=== PATIENT | female | born 1950 | race African-American/Black ===

== ENCOUNTER 2017-05-18 23:38 | Inpatient (IN) | payer MEDICARE, OTHER ==
[2017-05-19 00:54] LABS: #Lymphocytes 1.1 thou/uL (1.20-3.40); #Neutrophils 12.7 thou/uL (1.40-6.50); %Basophils 0.1 % (0.0-1.0); %Eosinophils 0.1 % (0.0-10.0); %Lymphocytes 7.1 % (21.0-51.0); %Monocytes 12.5 % (0.0-10.0); Hematocrit 24.1 % (36.0-47.0); Mean Platelet Volume 8.7 fL (7.4-10.4); Red Blood Cell (RBC) Count 2.38 mill/uL (4.20-5.40); White Blood Cell (WBC) Count 15.9 thou/uL (4.8-10.8)
[2017-05-19] MEDS ORDERED: Ondansetron ODT 4 MG TAB SL PRN (01:35)
[2017-05-19] MEDS ORDERED: Acetaminophen 325 MG TAB PO PRN (01:35)
[2017-05-19] MEDS ORDERED: Ondansetron HCl/PF 4 MG/2 ML Vial IVP PRN ×2 (01:35→06:59)
[2017-05-19] MEDS ORDERED: Sodium Chloride 0.9% 1,000 ML IV SCH (02:15)
[2017-05-19 02:26] VITALS: BMI 28.2
[2017-05-19 05:08] LABS: #Monocytes 1.3 thou/uL (0.11-0.59); #Neutrophils 13.8 thou/uL (1.40-6.50); %Basophils 0.1 % (0.0-1.0); %Eosinophils 0.1 % (0.0-10.0); %Lymphocytes 6.4 % (21.0-51.0); %Monocytes 8.2 % (0.0-10.0); Hematocrit 25.8 % (36.0-47.0); Mean Platelet Volume 8.9 fL (7.4-10.4); Red Blood Cell (RBC) Count 2.54 mill/uL (4.20-5.40); White Blood Cell (WBC) Count 16.2 thou/uL (4.8-10.8)
[2017-05-19 05:28] LABS: ALT (SGPT) 13 U/L (8-55); AST (SGOT) 51 U/L (5-34); Alkaline Phosphatase 206 U/L (40-150); Anion Gap 12 mmol/L (10-20); BUN (Urea Nitrogen) 32 mg/dL (9.8-20.1); Bilirubin, Total 2.2 mg/dL (0.2-1.2); Calc. Creatinine Clearance 35 mL/min (70-130); Calcium 8.4 mg/dL (7.8-10.44); Carbon Dioxide 23 mmol/L (23-31); Chloride 107 mmol/L (98-107); Estimated GFR-MDRD 34; Protein, Total 6.5 g/dL (6.0-8.3)
[2017-05-19] MEDS ORDERED: Potassium Chloride 20 MEQ TAB PO SCH (06:15)
[2017-05-19] MEDS ORDERED: Potassium Chloride 20 MEQ in Sodium Chloride 0.9% 250 ML 250 ML IVPB SCH (06:30)
[2017-05-19] MEDS ORDERED: Eucerin (Mineral Oil/Petrolatum,White) 30 gm Jar TOP PRN (06:59)
[2017-05-19] MEDS ORDERED: Ondansetron ODT 4 MG TAB PO PRN (06:59)
[2017-05-19] MEDS ORDERED: Zolpidem Tartrate 5 MG TAB PO PRN (06:59)
[2017-05-19] MEDS ORDERED: Milk Of Magnesia 30 ML UDCUP PO PRN (06:59)
[2017-05-19] MEDS ORDERED: Artificial Tears 18 DROP/0.9 ML EA EYE PRN (06:59)
[2017-05-19] MEDS ORDERED: Chloraseptic Spray 180 ml Bottle PO PRN (06:59)
[2017-05-19] MEDS ORDERED: Sodium Chloride 0.65% Nasal 44 ML BOT EA NARE PRN (06:59)
[2017-05-19] MEDS ORDERED: Loratadine 10 MG TAB PO PRN (06:59)
[2017-05-19] MEDS ORDERED: hydrALAZINE 20 MG/ML VIAL SLOW IVP PRN (06:59)
[2017-05-19] MEDS ORDERED: VANCOMYCIN IVPB PRN (06:59)
[2017-05-19] MEDS ORDERED: Mag-Al 1200 mg/1200 mg/30 ML UDCUP PO PRN (06:59)
[2017-05-19] MEDS ORDERED: Loperamide HCl 2 MG CAP PO PRN (06:59)
[2017-05-19] MEDS ORDERED: Senokot 8.6 MG TAB PO PRN (06:59)
[2017-05-19 07:23] LABS: Magnesium 1.7 mg/dL (1.6-2.6); Phosphorus 2.2 mg/dL (2.3-4.7)
[2017-05-19] MEDS: Cefepime 1 GM, Admixture Fee 1 EACH in Sterile Water 10 ML SLOW IVP SCH ×2 (08:26→21:50)
[2017-05-19] MEDS: Famotidine 20 MG TAB PO SCH (08:28)
[2017-05-19] MEDS: Saccharomyces boulardii 250 MG CAP PO SCH (08:28)
[2017-05-19] MEDS: Heparin 5,000 UNITS/ML VIAL SC SCH ×2 (08:31→21:51)
[2017-05-19] MEDS ORDERED: Cefepime 1 GM in Sodium Chloride 0.9% 100 ML IVPB SCH (09:00)
[2017-05-19] MEDS ORDERED: Multivit, Adult Inj 10 ML VIAL IV SCH (09:00)
[2017-05-19] MEDS ORDERED: Potassium Phosphate 12 MMOL in Sodium Chloride 0.9% 250 ML 250 ML IVPB SCH (09:00)
--- NOTE | 2017-05-19 09:56 | HP ---
PRIMARY CARE PHYSICIAN: Timbo Burden M.D. REASON FOR ADMISSION: Sepsis. HISTORY OF PRESENT ILLNESS: A 66-year-old female who has metastatic colon cancer and she is on chemo therapy. She initially went to [facility] for evaluation of cough and weakness. Patient was having cough productive of scanty amount of sputum for the last 2 days. She was feeling subjecti ve feverish, but she did not measure temperature. She was feeling more weak. She was having poor ap petite. At [facility], patient's temperature was 102.7. Patient was not feeling that hig h fever at home. At [facility], patient had routine blood test, which showed leukocytosis with acute kidney failure and hypokalemia. Patient was given vancomycin, Zosyn, potassium chloride, and Tylenol 1 gram as well as IV fluid and subsequently, she was transferred to our emergency room f or further evaluation. Initially, this patient was hypotensive. The patient was getting IV fluid overnight and she currentl y does not have any fever. She denies any pleuritic chest pain. She denies any constipation, diarrh ea, melena, hematochezia. She denies any nausea, vomiting, hematemesis. She denies any urinary trac t infection symptoms. ALLERGIES: No known drug allergies. CURRENT HOME MEDICATIONS: Hydrochlorothiazide 25 mg p.o. daily, Toprol-XL 50 mg p.o. daily, potassiu m chloride 20 mEq p.o. daily. REVIEW OF SYSTEMS: The following complete review of systems was negative, unless otherwise mentioned in the HPI or below: Constitutional: Weight loss or gain, ability to conduct usual activities. Sk in: Rash, itching. Eyes: Double vision, pain. ENT/Mouth: Nose bleeding, neck stiffness, pain, te nderness. Cardiovascular: Palpitations, dyspnea on exertion, orthopnea. Respiratory: Shortness of breath, wheezing, cough, hemoptysis, fever or night sweats. Gastrointestinal: Poor appetite, abdom inal pain, heartburn, nausea, vomiting, constipation, or diarrhea. Genitourinary: Urgency, frequenc y, dysuria, nocturia. Musculoskeletal: Pain, swelling. Neurologic/Psychiatric: Anxiety, depressio n. Allergy/Immunologic: Skin rash, bleeding tendency. Please see my HPI for pertinent positive and negatives. All other review of systems reviewed and neg ative except as mentioned in the HPI. EMERGENCY ROOM COURSE: Patient has received vancomycin, Zosyn and potassium chloride. [facility] the patient has received Tylenol and IV fluid at [facility]. PAST MEDICAL HISTORY: Hypertension, history of dyslipidemia, not on any statin therapy at this point . PAST SURGICAL HISTORY: Colon resection and MediPort placement. PAST PSYCHIATRIC HISTORY: Reviewed and negative. SOCIAL HISTORY: The patient lives at home with family. No history of tobacco, alcohol or illicit dr ug abuse. FAMILY HISTORY: Positive for asthma to her mother. PHYSICAL EXAMINATION: VITAL SIGNS: On arrival to [facility], blood pressure 146/76, pulse 95, respiratory rate 16, temperature 102.7, saturation 97% on room air. Currently, temperature 98.0, pulse 76, respirator y rate 18, saturation 99%, blood pressure 93/54, weight 164 pounds. GENERAL: Patient is currently alert, awake, no obvious acute distress. HEAD: Alopecia noted, but normocephalic, atraumatic. Eyes: Pupils round, reactive to light. Extra ocular muscle intact. ENT: Dry mucous membranes, no oral lesions, no pharyngeal erythema, no exudate. NECK: Supple, no JVD, no thyromegaly, no carotid bruits. LUNGS: Coarse breath sounds, but no obvious rhonchi or rales noted. CARDIAC: S1, S2 regular. No murmur, no gallop, no rub. ABDOMEN: Soft, bowel sounds present, nontender, nondistended. No organomegaly, no mass, no suprapub ic tenderness. BACK: Unremarkable, no CVA tenderness. EXTREMITIES: Upper extremity passive movement of all joints are normal. Lower extremities: No mariana a. SKIN: No skin rash. No erythema or tenderness around the MediPort. HEMATOLOGIC: No lymphadenopathy. SIGNIFICANT LABORATORY DATA: CBC: WBC 17.5, hemoglobin 9.4, MCV 101.0, platelet 254 with bandemia. BMP shows sodium 137, potassium 2.7, chloride 100, carbon dioxide 23, BUN 29, creatinine 1.180, gluc ose 95, calcium 9.4, phosphorus 2.2, magnesium 1.7. LFT: AST 63, ALT 18, alkaline phosphatase 246, albumin 3.0, bilirubin 1.9. Urinalysis, bilirubin present. Chest x-ray based on my review, chronic lung changes, MediPort in place. CT abdomen was recently done which showed enlargement of large mass involving the right lobe of liver, lymphadenopathy. ASSESSMENT AND PLAN: 1. Post-chemotherapy fever with sepsis with acute organ dysfunction. At this point, the patient was febrile at 102.7. Source of infection is not clear, but I am suspecting bronchitis given her fever, leukocytosis, and cough for almost 2 days. Patient is immunocompromised from chemotherapy. Patient will require admission and patient does not have any chills or less likely to be bacteremia, but nee ds to be excluded given MediPort. We will follow up on culture result and will continue with broad-s pectrum antibiotic therapy with cefepime and vancomycin and will change antibiotic therapy accordingl y. We will also add levofloxacin to cover staphylococcus coverage. We will influenza screen and uri ne culture. 2. Sepsis with acute organ dysfunction. The patient has sepsis criteria with leukocytosis, bandemia , high grade fever with acute kidney failure as mentioned in problem #1. We will continue empiric an tibiotic therapy and follow up on culture result. We will also continue with IV fluids. 3. Acute kidney failure. The patient will be given IV fluid with potassium at 125 mL per hour and w ill repeat BMP tomorrow. We will avoid nephrotoxin agent. 4. Hypotension because of low blood pressure, we will hold on antihypertensive medication at this po int. Whenever blood pressure permits, then we will resume her home medication. 5. Hypokalemia. We will replace potassium chloride with IV fluid and will also replace potassium ph osphatase. 6. Hypophosphatemia. We will replace potassium phosphate 12 mmol one time dose. 7. Microcytic anemia. We will continue with multivitamin daily and upon discharge, we will consider adding folic acid, vitamin B12, and multivitamin therapy upon discharge. 8. History of hypertension, but currently low blood pressure and that is why we will hold on antihyp ertensive medication. 9. History of metastatic colon cancer. Patient is following Dr. Reza as an outpatient basis. On cology consulted. Patient will get chemotherapy when oncology recommends. 10. Deep venous thrombosis prophylaxis. Lovenox, heparin 5000 units subcu twice daily. 11. Gastrointestinal prophylaxis. Pepcid 20 mg p.o. daily. CODE STATUS: The patient is FULL CODE. Patient's daughter is surrogate decision maker. Disposition plan based on clinical course. We are expecting patient's stay in the hospital more than 2 midnights. Plan of care discussed with the patient and family member and during this admission, w e will also send stool for infection workup to rule out Clostridium difficile infection.
[2017-05-19] MEDS: MULTIVITAMINS IV SCH ×2 (13:11)
[2017-05-19] MEDS: KCL IV SCH ×2 (13:11)
[2017-05-19] MEDS: NS IV SCH ×2 (13:11)
[2017-05-19] MEDS: NS 0.9% w/ 20 MEQ KCL 1,000 ML/1,000 ML BAG IV SCH ×2 (15:59→16:00)
[2017-05-19] MEDS: Diabetic Tussin 200 MG/10 ML UDCUP PO PRN ×2 (18:38→21:59)
[2017-05-19] MEDS: Acetaminophen 325 MG TAB PO PRN (21:58)
[2017-05-19] MEDS ORDERED: Vancomycin HCl 750 MG in Sodium Chloride 0.9% 250 ML 250 ML IVPB SCH (22:00)
--- NOTE | 2017-05-19 23:37 | PDOC.EVN ---
Event Note - Event Note Event Note: RN called - Patient is tachycardic in 150s while on Vancomycin. Hold Vancomycin for now for possible allergic reaction. EKG showed ?ST HR in 140s. Will transfer to tele. Echo. Cardizem drip. Close monitoring. Troponins.
[2017-05-19] MEDS ORDERED: diphenhydrAMINE 50 MG/ML VIAL IVP SCH (23:45)
[2017-05-19] MEDS ORDERED: Famotidine/PF 20 mg/2ml Vial SLOW IVP SCH (23:45)
[2017-05-20] MEDS ORDERED: Nitroglycerin 0.4 MG TAB (25 Tab Bottle) PO PRN (00:13)
[2017-05-20] MEDS ORDERED: Aspirin 325 MG TAB PO SCH (00:15)
[2017-05-20] MEDS ORDERED: Diltiazem 125 MG in Sodium Chloride 0.9% 100 ML IVPB SCH (00:15)
[2017-05-20] MEDS: HYDROcodone/Acetaminophen 5/325 mg Tablet PO PRN ×2 (00:20→20:03)
[2017-05-20 00:26] LABS: Anion Gap 16 mmol/L (10-20); BUN (Urea Nitrogen) 21 mg/dL (9.8-20.1); Calc. Creatinine Clearance 49 mL/min (70-130); Calcium 8.9 mg/dL (7.8-10.44); Carbon Dioxide 18 mmol/L (23-31); Chloride 104 mmol/L (98-107); Estimated GFR-MDRD 49; Magnesium 1.4 mg/dL (1.6-2.6)
[2017-05-20 00:31] LABS: Troponin I 0.014 ng/mL (< 0.028)
[2017-05-20] MEDS: NS 0.9% w/ 20 MEQ KCL 1,000 ML/1,000 ML BAG IV SCH ×3 (04:30→15:07)
[2017-05-20 05:10] LABS: ALT (SGPT) 16 U/L (8-55); AST (SGOT) 52 U/L (5-34); Alkaline Phosphatase 198 U/L (40-150); Anion Gap 11 mmol/L (10-20); BUN (Urea Nitrogen) 20 mg/dL (9.8-20.1); Bilirubin, Total 1.7 mg/dL (0.2-1.2); Calc. Creatinine Clearance 57 mL/min (70-130); Calcium 8.5 mg/dL (7.8-10.44); Carbon Dioxide 21 mmol/L (23-31); Chloride 107 mmol/L (98-107); Estimated GFR-MDRD 58; Globulin 3.9 g/dL (2.4-3.5); Phosphorus 2.5 mg/dL (2.3-4.7); Protein, Total 6.3 g/dL (6.0-8.3)
[2017-05-20 05:11] LABS: Band 26 % (5-11); Hematocrit 25.7 % (36.0-47.0); Mean Platelet Volume 9.1 fL (7.4-10.4); Neutrophil 58 % (42-75); Red Blood Cell (RBC) Count 2.53 mill/uL (4.20-5.40); White Blood Cell (WBC) Count 16.6 thou/uL (4.8-10.8)
[2017-05-20] MEDS ORDERED: Potassium Chloride 20 MEQ TAB PO SCH (05:30)
[2017-05-20] MEDS ORDERED: Magnesium 2 GM/NS 0.9% 50 ML 2 GM in Premix Bag 1 BAG IVPB SCH (06:00)
[2017-05-20] MEDS: Cefepime 1 GM, Admixture Fee 1 EACH in Sterile Water 10 ML SLOW IVP SCH ×2 (08:51→20:05)
[2017-05-20] MEDS: Famotidine 20 MG TAB PO SCH (08:52)
[2017-05-20] MEDS: Potassium Chloride 20 MEQ TAB PO SCH (08:52)
[2017-05-20] MEDS: Heparin 5,000 UNITS/ML VIAL SC SCH ×2 (08:52→20:04)
[2017-05-20] MEDS: Saccharomyces boulardii 250 MG CAP PO SCH (08:52)
[2017-05-20] MEDS ORDERED: Metoprolol Tartrate 25 MG TAB PO SCH (09:00)
[2017-05-20 09:24] LABS: Troponin I 0.199 ng/mL (< 0.028)
[2017-05-20] MEDS: KCL IV SCH ×2 (12:12)
[2017-05-20] MEDS: MULTIVITAMINS IV SCH ×2 (12:12)
[2017-05-20] MEDS: NS IV SCH ×2 (12:12)
--- NOTE | 2017-05-20 12:55 | PDOC.PN ---
- Subjective Encounter Start Date: 05/20/17 Encounter Start Time: 12:53 Subjective: feels a little better.cough .no SOB.no chills -: Pt had reaction to vancomycin w chest pain & tachycardia,now better - Objective Resuscitation Status: Resuscitation Status FULL:Full Resuscitation MAR Reviewed: Yes Vital Signs & Weight: Vital Signs (12 hours) Temp Pulse Resp BP Pulse Ox 05/20/17 12:01 98.1 F 77 18 120/69 99 05/20/17 08:00 97.6 F 78 16 05/20/17 07:44 97.6 F 78 16 102/62 95 05/20/17 04:00 98.2 F 87 20 101/57 L 98 05/20/17 02:22 99.3 F 134 H 20 98 05/20/17 00:58 99.8 F H 127 H 26 H 121/65 94 L Weight Weight 167 lb 11.2 oz I&O: 05/19/17 05/20/17 05/21/17 06:59 06:59 06:59 Intake Total 855 1235 Balance 855 1235 Result Diagrams: 05/20/17 04:15 05/20/17 04:15 Additional Labs: Microbiology 05/18/17 20:18 Nasopharyngeal swab Influenza Types A,B Direct EIA - Final 05/18/17 20:02 Venous blood - Right Arm Blood Culture - Preliminary Klebsiella pneumoniae 1/2 Laboratory Tests 05/15/17 05/18/17 05/19/17 09:04 20:02 04:46 Creatinine 1.80 H Total Bilirubin 2.2 H AST 63 H 51 H ALT Alkaline Phosphatase 189 H 246 H 206 H Troponin I 05/19/17 05/19/17 05/20/17 23:55 23:55 04:15 Creatinine 1.30 H 1.13 H Total Bilirubin 1.7 H AST 52 H ALT 16 Alkaline Phosphatase 198 H Troponin I 0.014 05/20/17 08:56 Creatinine Total Bilirubin AST ALT Alkaline Phosphatase Troponin I 0.199 H Radiology Reviewed by me: Yes (ECHO- diastolic dysFx) Phys Exam - Physical Examination Constitutional: NAD HEENT: PERRLA, moist MMs, sclera anicteric, oral pharynx no lesions Neck: no nodes, no JVD, supple, full ROM Respiratory: no wheezing, no rales, no rhonchi, clear to auscultation bilateral Cardiovascular: RRR, no significant murmur, no rub, gallop Gastrointestinal: soft, non-tender, no distention, positive bowel sounds Musculoskeletal: no edema, pulses present Neurological: non-focal, normal sensation, moves all 4 limbs Psychiatric: normal affect, A&O x 3 Skin: no rash Dx/Plan (1) Sepsis Code(s): A41.9 - SEPSIS, UNSPECIFIED ORGANISM Status: Acute (2) Hypokalemia Code(s): E87.6 - HYPOKALEMIA Status: Acute (3) KIM (acute kidney injury) Code(s): N17.9 - ACUTE KIDNEY FAILURE, UNSPECIFIED Status: Acute (4) Liver metastases Code(s): C78.7 - SECONDARY MALIG NEOPLASM OF LIVER AND INTRAHEPATIC BILE DUCT Status: Chronic (5) Colon cancer Code(s): C18.9 - MALIGNANT NEOPLASM OF COLON, UNSPECIFIED Status: Chronic (6) Elevated troponin Code(s): R74.8 - ABNORMAL LEVELS OF OTHER SERUM ENZYMES Status: Acute Comment: marciano demand ischemia due to Sepsis - Plan DVT proph w/SCDs cont empiric ABx.no clear source./ Blood Cx +ve for klebsiella -: will consult ID as pt is immunocompromised w ongoing Chemo -: Liver Enzymes high d/t Liver mets. monitor. -: Mediport in place. -: Cont ChemoRx as an outpatient. * .AM labs. * hemodynamically stable. Review of Systems - Review of Systems Constitutional: Weakness, Malaise ENT: negative: Ear Pain, Ear Discharge, Nose Pain, Nose Discharge, Nose Congestion, Mouth Pain, Mouth Swelling, Throat Pain, Throat Swelling, Other Respiratory: Cough. negative: Dry, Shortness of Breath, Hemoptysis, SOB with Excertion, Pleuritic Pain, Sputum, Wheezing Cardiovascular: negative: Chest Pain, Palpitations, Orthopnea, Paroxysmal Noc. Dyspnea, Edema, Light Headedness, Other Gastrointestinal: negative: Nausea, Vomiting, Abdominal Pain, Diarrhea, Constipation, Melena, Hematochezia, Other Genitourinary: negative: Dysuria, Frequency, Incontinence, Hematuria, Retention , Other Musculoskeletal: negative: Neck Pain, Shoulder Pain, Arm Pain, Back Pain, Hand Pain, Leg Pain, Foot Pain, Other Neurological: negative: Weakness, Numbness, Incoordination, Change in Speech, Confusion, Seizures, Other - Medications/Allergies Allergies/Adverse Reactions: Allergies Allergy/AdvReac Type Severity Reaction Status Date / Time bevacizumab [From Avastin] Allergy Verified 05/20/17 02:39 vancomycin Allergy Verified 05/20/17 02:39 Medications: Current Medications Acetaminophen (Tylenol) 650 mg PO Q4H PRN PRN Reason: Headache/Fever or Pain Last Admin: 05/19/17 21:58 Dose: 650 mg Hydrocodone Bitart/Acetaminophen ([place] 5/325) 1 tab PO Q4H PRN PRN Reason: Moderate Pain (4-6) Last Admin: 05/20/17 00:20 Dose: 1 tab Al Hydroxide/Mg Hydroxide (Maalox) 30 ml PO Q6H PRN PRN Reason: Heartburn or Indigestion Albuterol/Ipratropium (Duoneb) 3 ml NEB Q6H PRN PRN Reason: SOB &/or Wheezing Artificial Tears (Tears Naturale) 0 drop EA EYE PRN PRN PRN Reason: Dry Eyes Famotidine (Pepcid) 20 mg PO DAILY [facility] Last Admin: 05/20/17 08:52 Dose: 20 mg Guaifenesin (Robitussin Sf) 200 mg PO Q4H PRN PRN Reason: Cough Last Admin: 05/19/17 21:59 Dose: 200 mg Heparin Sodium (Porcine) (Heparin) 5,000 units SC BID [facility] Last Admin: 05/20/17 08:52 Dose: 5,000 units Hydralazine HCl (Apresoline) 10 mg SLOW IVP Q4H PRN PRN Reason: Systolic BP > 180 Potassium Chloride/Sodium Chloride (Ns 0.9% W/ 20 Meq Kcl) 1,000 ml in 1,000 mls @ 125 mls/hr IV .Q8H [facility] Last Admin: 05/20/17 12:25 Dose: Not Given Cefepime HCl 1 gm/Miscellaneous Medication 1 each/ Sterile Water 10 mls @ 120 mls/hr SLOW IVP 0800,1999 [facility] Last Admin: 05/20/17 08:51 Dose: 10 mls Loperamide HCl (Imodium) 2 mg PO PRN PRN PRN Reason: Diarrhea/Loose Stools Loratadine (Claritin) 10 mg PO DAILYPRN PRN PRN Reason: Sinus Symptoms Magnesium Hydroxide (Milk Of Magnesium) 30 ml PO DAILYPRN PRN PRN Reason: Constipation Metoprolol Succinate (Toprol Xl) 50 mg PO DAILY [facility] Last Admin: 05/20/17 08:52 Dose: 50 mg Mineral Oil/White Petrolatum (Eucerin Cream) 0 gm TOP BIDPRN PRN PRN Reason: Dry Skin Nitroglycerin (Nitrostat) 0.4 mg PO Q5MIN PRN PRN Reason: Chest Pain Ondansetron HCl (Zofran Odt) 4 mg PO Q6H PRN PRN Reason: Nausea/Vomiting Ondansetron HCl (Zofran) 4 mg IVP Q6H PRN PRN Reason: Nausea/Vomiting Last Admin: 05/19/17 23:59 Dose: 4 mg Phenol (Chloraseptic Heber 180 Ml Bot) 0 ml PO PRN PRN PRN Reason: Sore Throat Potassium Chloride (K-Dur) 20 meq PO QAM-WM [facility] Last Admin: 05/20/17 08:52 Dose: 20 meq Saccharomyces Boulardii (Florastor) 250 mg PO DAILY [facility] Last Admin: 05/20/17 08:52 Dose: 250 mg Senna (Senokot) 2 tab PO HSPRN PRN PRN Reason: Constipation Sodium Chloride (Butler Nasal Heber 0.65%) 0 ml EA NARE QIDPRN PRN PRN Reason: Nasal Congestion Sodium Chloride (Flush - Normal Saline) 10 ml IVF PRN PRN PRN Reason: Saline Flush Zolpidem Tartrate (Ambien) 5 mg PO HSPRN PRN PRN Reason: Insomnia
--- NOTE | 2017-05-20 13:30 | CON ---
DATE OF CONSULTATION: 05/20/2017 REASON FOR CONSULTATION: Bacteremia. HISTORY OF PRESENT ILLNESS: A 66-year-old with history of hypertension and adenocarcinoma of colon d iagnosed in 2010 and in remission until 08/2015 when she was identified with metastatic liver maligna ncy. She also had subsequently PET scan suggestive of lung with mets as well. Since then, patient h as been managed palliative chemotherapy and stenting of the biliary tract for palliative management o f biliary obstruction. The patient has had a brief biliary stent since 08/2015 and has had a permane nt stent placed in August of this year by Dr. Aviles and was admitted at this time because of new onset of cough and weakness which she developed on the day of admission associated with fever. No sputum p roduction. No headaches or maybe some headaches. No visual symptoms, sore throat, odynophagia, or d ysphagia. No vomiting, hematemesis, melena, or hematochezia, no diarrhea, no abdominal pain. No jcarlos rological symptoms or joint symptoms. No back pain. PAST MEDICAL HISTORY: Hypertension, dyslipidemia, stage 2 colon cancer diagnosed in 2010, in [facility] on until 2015, which was diagnosed with metastatic liver involvement as well as lung involvement and biliary tract obstruction, multiple biliary stents placed and palliative chemotherapy, [facility], prior segmental colon resection. SOCIAL HISTORY: Never a smoker. Lives in [place] with family. FAMILY HISTORY: Asthma. ALLERGY HISTORY: BEVACIZUMAB and VANCOMYCIN. CURRENT MEDICATIONS: Tylenol, [place], DuoNeb, cefepime, Pepcid, Robitussin, Apresoline, Toprol, Zofra n, Senokot, Florastor. PHYSICAL EXAMINATION: VITAL SIGNS: T-max 100.5, currently 98.1, blood pressure 120/69, pulse 77, respirations 16-18, O2 sa t 99%. SKIN: Shows a port in the right subclavian position, tunneled into the IJ with no inflammatory partida es. The port is accessed at this time. No Rolle catheter. No lymphadenopathy. Some alopecia. HEENT: Ocular movements are conjugate. Sclerae are white. Pupils are equal. Oral cavity normal. Numerous teeth in place. NECK: Supple, no jugular venous distention. LUNGS: With symmetric clear breath sounds. HEART: S1 and S2, regular rate. No S3 or S4. ABDOMEN: Shows hepatomegaly. Some distention in the right upper quadrant, no tenderness. No ascite s, no other organomegaly. No bladder distention. EXTREMITIES: No joint inflammatory activity. Pulses are 1+ in dorsalis pedis. No edema. NEUROLOGIC: Plantar responses are flexor. No clonus. Cognitive function appears to be intact. Str ength in upper and lower extremities is preserved and symmetric. LABORATORY DATA AND IMAGING: White cell count 15.9 and 16.6, hemoglobin 8.4, MCV 102, platelets 227, 80% neutrophils down to 50% neutrophils, bands at 26%. Chemistry: Sodium 136, potassium 2.8, bilir ubin 1.7, AST 52, alkaline phosphatase 206, jerrod of alkaline phosphatase was 97 on 04/17/2017, AST w as down to 33 recently in 05/15/2017, total bilirubin had normalized to 0.8 at the end of March. R eports included abdomen and pelvis CT from 04/18/2017 with slight enlargement of large mass involving right lobe of liver, cidny hepatis and portocaval adenopathy appears stable. Creatinine 1.13 down f rom admission. Baseline creatinine 1.09 in November this year. Chest x-ray with chronic lung changes. ASSESSMENT: 1. Hypertension. 2. Metastatic stage IV colon cancer with metastasis to liver, biliary tract obstruction, and evidenc e of pulmonary metastasis. 3. Fever, cough, and Klebsiella pneumoniae bacteremia, 1 out of 2 sets. DISCUSSION: Differential diagnosis includes cholangitis associated with stent and patency and commun ication between biliary tract and intestinal lumen with colonization of biliary tract versus dysfunct ion of the stent or obstruction with cholangitis. An alternate process, for example respiratory trac t infection, urinary tract, bone and joint and gastrointestinal inflammatory process appeared to be l ess likely. Liver abscess is a concern. Continue cefepime. Wait for identification and susceptibil ity of the organism. Hopefully, we can transition to oral quinolone. Ideally, one would like to rep eat CT abdomen with contrast to evaluate for the above possibilities, but will have to wait for creat inine to improve. In the meantime, could do an ultrasound of the abdomen.
[2017-05-20 16:31] LABS: Magnesium 2.1 mg/dL (1.6-2.6)
[2017-05-20] MEDS: Diabetic Tussin 200 MG/10 ML UDCUP PO PRN (21:06)
[2017-05-21] MEDS: NS 0.9% w/ 20 MEQ KCL 1,000 ML/1,000 ML BAG IV SCH ×2 (01:10→09:33)
[2017-05-21 05:12] LABS: Troponin I 0.195 ng/mL (< 0.028)
--- NOTE | 2017-05-21 08:25 | ULT ---
RIGHT UPPER QUADRANT ULTRASOUND: DATE: 05/21/17. HISTORY: Hepatic metastatic disease, evaluate biliary tree. TECHNIQUE: Multiplanar, biggs scale, sonographic imaging of the right upper quadrant provided. FINDINGS: There is a heterogeneously hypoechoic 3.6 x .4 cm mass in the region of the pancreatic head, which co uld represent a pancreatic mass or enlarged node in the cindy hepatis. No evidence for intrahepatic biliary dilatation is seen. There is a large heterogeneously hypoechoic lesion replacing the right lower lobe of the liver, consi stent with the provided history of metastatic disease. This lesion measures at least 10 x 13.6 cm. The common bile duct measures in the 5-6 range, within normal limits. The right kidney measures 11.7 cm in craniocaudal dimension and demonstrates no evidence for stone, h ydronephrosis, or mass. What appears to represent the gallbladder is markedly abnormal, with central fluid echogenicity, prob able internal gas, and marked wall thickening, measuring up to 1 cm. There is evidence of pneumobilia within the left lobe of the liver. IMPRESSION: 1. Probable cindy hepatis adenopathy. Lesion within the liver nearly completely replacing the right lobe of the liver is consistent with metastatic disease. 2. The gallbladder wall is markedly thickened. This is of uncertain etiology/significance. The son ographer reports a negative Padilla's sign. There is probable gas within the gallbladder, which was s een on recent CT performed 04/18/17. If there is clinical concern for acute cholecystitis, CT examina tion is suggested. POS: SARAH
[2017-05-21] MEDS ORDERED: NS 0.9% w/ 20 MEQ KCL 1,000 ML/1,000 ML BAG IV SCH (08:27)
[2017-05-21 08:39] LABS: #Lymphocytes 1.1 thou/uL (1.20-3.40); #Monocytes 1.5 thou/uL (0.11-0.59); #Neutrophils 11.6 thou/uL (1.40-6.50); %Basophils 0.1 % (0.0-1.0); %Eosinophils 0.2 % (0.0-10.0); %Lymphocytes 7.4 % (21.0-51.0); %Monocytes 10.7 % (0.0-10.0); Hematocrit 25.9 % (36.0-47.0); Mean Platelet Volume 9.4 fL (7.4-10.4); Red Blood Cell (RBC) Count 2.51 mill/uL (4.20-5.40); White Blood Cell (WBC) Count 14.2 thou/uL (4.8-10.8)
[2017-05-21 08:50] LABS: Anion Gap 13 mmol/L (10-20); BUN (Urea Nitrogen) 14 mg/dL (9.8-20.1); Calc. Creatinine Clearance 72 mL/min (70-130); Calcium 8.6 mg/dL (7.8-10.44); Carbon Dioxide 19 mmol/L (23-31); Chloride 109 mmol/L (98-107); Estimated GFR-MDRD 77
[2017-05-21] MEDS: Acetaminophen 325 MG TAB PO PRN (09:06)
[2017-05-21] MEDS: Potassium Chloride 20 MEQ TAB PO SCH (09:06)
[2017-05-21] MEDS: Saccharomyces boulardii 250 MG CAP PO SCH (09:06)
[2017-05-21] MEDS: Famotidine 20 MG TAB PO SCH (09:06)
[2017-05-21] MEDS: Heparin 5,000 UNITS/ML VIAL SC SCH (09:07)
[2017-05-21] MEDS ORDERED: ADMIXTURE FEE IV SCH (09:15)
[2017-05-21] MEDS ORDERED: POTASSIUM CHLORIDE IV SCH (09:15)
[2017-05-21] MEDS ORDERED: SODIUM CHLORIDE IV SCH (09:15)
[2017-05-21] MEDS: Cefepime 1 GM, Admixture Fee 1 EACH in Sterile Water 10 ML SLOW IVP SCH (10:36)
[2017-05-21 12:26] VITALS: BP 132/77; TEMP 98.3
--- NOTE | 2017-05-21 17:56 | DIS ---
DATE OF ADMISSION: 05/19/2017 DATE OF DISCHARGE: 05/21/2017 CONDITION AT THE TIME OF DISCHARGE: Stable and improved. DISCHARGE DIAGNOSES: 1. Sepsis secondary to Klebsiella bacteremia. 2. Questionable cholangitis and differential diagnosis of sepsis. 3. Hypertension. 4. Metastatic stage IV colon cancer with metastasis to liver, biliary tract obstruction, status post stent placement in the past, and pulmonary metastasis. 5. Allergic reaction to VANCOMYCIN. 6. Hypokalemia. 7. Acute kidney injury, resolved. 8. Elevated troponin, likely demand ischemia due to sepsis. PROCEDURES DONE IN THE HOSPITAL: Include, 1. Transthoracic echocardiogram, which showed diastolic dysfunction, EF 55% to 60%. 2. Abdominal ultrasound which showed thickening of the gallbladder wall with negative sonographic Mu rphy sign and lymphadenopathy of cindy hepatis. Right lobe of the liver is consumed by a big lesion that is metastatic in nature, measuring 10 x 13.6 cm. DISCHARGE MEDICATIONS: New medications: Ciprofloxacin 500 mg p.o. b.i.d. for 14 days, Florastor 250 mg p.o. daily for 14 days. Resume home medications: Toprol-XL 50 mg daily, hydrochlorothiazide 25 mg daily and potassium chloride 20 mEq daily. PRIMARY CARE PHYSICIAN: Timbo Burden M.D. CONSULTATION IN THE HOUSE: Infectious Disease, Dr. Rossi. HISTORY OF PRESENTING ILLNESS: Ms. Keisha Lauren is a 66-year-old -Mongolian female with histor y of metastatic colon cancer to liver, on palliative chemotherapy, who presented to the ER with compl aints of cough, weakness, and feeling feverish. Upon presentation in the outside ER, when her temper ature was 102.7 and she was found to have leukocytosis, acute renal insufficiency, and hypokalemia. She was given fluids and IV empiric antibiotics and was admitted to our hospital for further evaluati on and care. Upon presentation, she was somewhat hypotensive, which resolved quickly. Please see ad mission history and physical for further details. As the patient is still on chemotherapy, she was s tarted on broad spectrum IV antibiotics, namely cefepime and vancomycin and cultures were sent. HOSPITAL COURSE: The patient was started antibiotics, but unfortunately had reaction to VANCOMYCIN w hich was stopped. She had tachycardia and hypertension and felt feverish with chills with that. Thi s was resolved quickly. She also had some chest pain with these symptoms and cardiac enzymes were do ne and trended. Her troponin was somewhat elevated to 0.19 and then trended down to 0.195. This was thought secondary to demand ischemia from severe sepsis. Her kidney function normalized. She had h ypokalemia on presentation, which was replaced and by the time of discharge, her potassium has been b ack up to normal at 3.6 today. Because of her immunocompromised state and presentation with severe sepsis, Infectious Disease was co nsulted. Dr. Rossi saw the patient and wanted to get an abdominal ultrasound. The ultrasound was do ne, which was negative for any Padilla sign, but did show nonspecific findings of gallbladder wall thi ckening. The patient did not have any abdominal symptoms on examination. Her blood cultures did sh ow 1 out of 2 set Klebsiella pneumoniae. Her influenza and Clostridium difficile testing were negati ve. Her stool was negative for Campylobacter and E. coli Shiga toxin. On the day of discharge, the patient was actually back to her baseline and was eager to go home. She was hemodynamically stable. Dr. Rossi recommended oral ciprofloxacin for a total of 14 days, which was given to the patient. She was seen and examined prior to discharge. PHYSICAL EXAMINATION: VITAL SIGNS: Temperature 98.3, pulse of 77, respirations 16, saturating 100% on room air, blood pres sure 132/77. GENERAL: No acute distress. Awake, alert and oriented x3. CHEST: Clear to auscultation. HEART: Rate and rhythm is regular. She is walking to the bathroom and going for a shower by herself and has a good appetite. Discharge plan was discussed with the patient's daughter who verbalized understanding. They will fol low with primary care physician in 7-10 days.
--- NOTE | 2017-05-26 15:35 | EKG ---
Test Reason : Blood Pressure : / mmHG Vent. Rate : 068 BPM Atrial Rate : 068 BPM P-R Int : 130 ms QRS Dur : 094 ms QT Int : 416 ms P-R-T Axes : 065 025 042 degrees QTc Int : 442 ms Normal sinus rhythm Normal ECG Confirmed by FRANK NEWTON D.O. ([id number]), makeup editor RINA NGUYEN ([id number] on 05/26/2017 3:35:04 PM Referred By: Confirmed By:FRANK NEWTON D.O.
== END 2017-05-21 12:45 | disposition home or self-care (01) | DRG 872 ==
LOC: ERS 23:38 → ONC 05-19 00:30 → 2SW 05-20 00:57
PROVIDERS: ADMIT Family Medicine; ATTEND Family Medicine
DX: A41.89 Other specified sepsis (principal); N17.9 Acute kidney failure, unspecified; K83.0 Cholangitis; C78.7 Secondary malignant neoplasm of liver and intrahepatic bile duct; C78.89 Secondary malignant neoplasm of other digestive organs; I24.8 Other forms of acute ischemic heart disease; E83.39 Other disorders of phosphorus metabolism; C18.9 Malignant neoplasm of colon, unspecified; I10 Essential (primary) hypertension; D50.9 Iron deficiency anemia, unspecified; R65.20 Severe sepsis without septic shock; Z92.21 Personal history of antineoplastic chemotherapy; E87.6 Hypokalemia; E78.5 Hyperlipidemia, unspecified; Z90.49 Acquired absence of other specified parts of digestive tract; Z95.828 Presence of other vascular implants and grafts; Z88.1 Allergy status to other antibiotic agents; T36.8X5A Adverse effect of other systemic antibiotics, initial encounter; R00.0 Tachycardia, unspecified; Y92.230 Patient room in hospital as the place of occurrence of the external cause; R50.2 Drug induced fever
CPT/HCPCS: 36415; 76705; 80048; 80053; 83735; 83880; 84100; 84484; 85025; 87015; 87045; 87046; 87324; 87328; 87329; 87449; 87899; 93005; 93010; 93306; 96360; A4216; G8978-GP-CI; G8979-GP-CI; G8980-GP-CI; J0692; J1200; J1644; J2405; J3370; J3475; J3480; J7050; Q0162; S0028

== ENCOUNTER 2017-06-12 14:37 | Observation (INO) | payer MEDICARE, OTHER ==
--- NOTE | 2017-06-12 17:16 | HP ---
PRIMARY CARE PHYSICIAN: Dr. Burden ONCOLOGIST: Dr. Reza. Patient has been referring to the [facility] by [place] [facility]. The patient states she has been weak for 1 week, totally exhausted with walking 20 feet. She did not describe any shortness of breath, dizziness or fainting, no fever, chills or sweats. She has colon cancer, metastatic to liver and lungs. Last chemotherapy 6 weeks ago. Next planned chemotherapy next week. PAST MEDICAL HISTORY: She has a history of hypertension. She was recently 4 weeks ago hospitalized for sepsis secondary to Klebsiella bacteremia. CURRENT MEDICATIONS: Toprol-XL 50 one a day, hydrochlorothiazide 25 mg a day, potassium chloride 20 mEq a day. ALLERGIES: VANCOMYCIN. PAST SURGICAL HISTORY: Colon resection, MediPort placement. SOCIAL HISTORY: Lives at home with family. No tobacco, alcohol or illicit drug use. CODE STATUS: Full. Multiple family members at bedside. FAMILY HISTORY: Positive for asthma in her mother. REVIEW OF SYSTEMS: General: Poor appetite, poor fluid intake the past week. Eyes: No double vision, blurred vision, flashing lights. Ear, nose and Throat : No ear pain or drainage. No nasal bleeding. No trouble swallowing. Cardiac : No chest pain, orthopnea or paroxysmal nocturnal dyspnea. Respirations: She had bronchitis a weeks ago. She has a little bit of cough lingering from there. No asthma or wheezing. Gastrointestinal: No nausea, vomiting, abdominal pain, diarrhea or constipation. Genitourinary: She notes decreased urine output, but no blood or pain on urination. Musculoskeletal: Some back pain with present illness. Psychiatric: No anxiety, depression. Neurological : No strokes, seizures or focal weakness. SKIN: No bruising, bleeding or rash. Heme/Lymph: No tender or swollen lymph nodes in axilla, inguinal or cervical area. PHYSICAL EXAMINATION: GENERAL: She is an alert, pleasant, cooperative lady. VITAL SIGNS: Blood pressure 131/85, pulse 99, respirations 16, temperature 98.1 , O2 sat 94% on room air. HEENT: Pupils equal, round, and reactive to light. Extraocular movements are intact. Sclerae white. Tympanic membranes clear. Nose clear. Oral mucous membranes are wet. Dental hygiene is fair. NECK: Supple, without jugular venous distention, adenopathy or thyromegaly. CHEST: Grossly clear to auscultation and percussion. No palpable rales or wheezes. No water bowl rales or wheezes. HEART: Regular rate and rhythm. First and second heart sounds are clear. No murmurs or gallops. ABDOMEN: A large 7 x 7 inch mass which is probably a tumor engorged liver and the right upper quadrant. Bowel sounds are present. No distention, no tenderness. EXTREMITIES: Reveal no cyanosis, clubbing or edema. PULSES: Carotid, radial, femoral, and dorsalis pedis pulses intact. SKIN: Warm and dry without bruises or rash. LYMPHATIC: No tender or swollen lymph nodes in axilla, inguinal or cervical area. NEUROLOGIC: Cranial nerves II-XII are intact. Deep tendon reflexes diminished. IMAGING: X-ray, none present. EKG none presented. LABORATORY DATA: Done in [place] ER earlier today, white count 12.6, platelet count 311,000, hemoglobin 9.1. Comp metabolic profile, creatinine 2.55. He has been normal discharge. Prior to BUN 52, CO2 of 15, total bilirubin 1.5, AST 170, alkaline phosphatase 382, sodium 137, potassium 3.6. Urine shows white cell counts 11-20 white cells. ADMITTING DIAGNOSES: 1. Acute renal failure. 2. Urinary tract infection. 3. Colon cancer with metastases to bone and liver. 4. Hypertension, metabolic acidosis. PLAN: Patient will be admitted on observations initially. Urine cultures have been obtained. The patient has been started on Rocephin IV. IV fluids have been started. Basic metabolic profile will be monitored and decision for further stay will be made tomorrow. MTDD
[2017-06-12] MEDS ORDERED: Sodium Chloride 0.9% 1,000 ML IV SCH (17:52)
[2017-06-12] MEDS ORDERED: Ondansetron ODT 4 MG TAB SL PRN (17:52)
[2017-06-12] MEDS ORDERED: Acetaminophen 325 MG TAB PO PRN ×2 (17:52→17:54)
[2017-06-12] MEDS ORDERED: Ondansetron HCl/PF 4 MG/2 ML Vial IVP PRN ×2 (17:52→17:54)
[2017-06-12] MEDS ORDERED: Zolpidem Tartrate 5 MG TAB PO PRN (17:54)
[2017-06-12] MEDS ORDERED: cefTRIAXone\\ROCEPHIN 1 GM in Sodium Chloride 0.9% 100 ML IVPB SCH (17:54)
[2017-06-12 18:01] VITALS: BMI 28.8
[2017-06-12] MEDS ORDERED: cefTRIAXone\\ROCEPHIN 1 GM, Syringe 0.4 ML in Sterile Water 9.6 ML SLOW IVP SCH (18:30)
--- NOTE | 2017-06-12 18:51 | RAD ---
PA AND LATERAL CHEST: 06/12/17 HISTORY: Metastatic colon cancer. COMPARISON: 05/18/17 study. Heart size is within normal limits. A right sided Mediport catheter is present. Slight elevation to t he right hemidiaphragm is noted. Some linear scarring in the right lung field. No acute process is id entified. IMPRESSION: No acute findings. POS: SARAH
[2017-06-12] MEDS: Sodium Chloride 0.9% 1,000 ML IV SCH (18:54)
[2017-06-13] MEDS: Sodium Chloride 0.9% 1,000 ML IV SCH ×2 (02:40→11:40)
[2017-06-13 05:02] LABS: #Eosinphils 0.1 thou/uL (0.0-0.7); #Lymphocytes 1.1 thou/uL (1.20-3.40); #Monocytes 1.4 thou/uL (0.11-0.59); #Neutrophils 8.2 thou/uL (1.40-6.50); %Basophils 0.3 % (0.0-1.0); %Eosinophils 0.9 % (0.0-10.0); %Lymphocytes 9.8 % (21.0-51.0); %Monocytes 13.1 % (0.0-10.0); Hemoglobin 8.4 g/dL (12.0-16.0); Mean Corpuscular HGB CONC 32.4 g/dL (32.0-36.0); Mean Corpuscular Hemoglobin 32.6 pg (27.0-31.0); Platelet Count 266 thou/uL (130-400); RBC Distribution Width 14.9 % (11.5-14.5); Red Blood Cell (RBC) Count 2.58 mill/uL (4.20-5.40); White Blood Cell (WBC) Count 10.8 thou/uL (4.8-10.8)
[2017-06-13 05:55] LABS: Anion Gap 15 mmol/L (10-20); BUN (Urea Nitrogen) 45 mg/dL (9.8-20.1); Calc. Creatinine Clearance 36 mL/min (70-130); Calcium 8.8 mg/dL (7.8-10.44); Carbon Dioxide 18 mmol/L (23-31); Chloride 109 mmol/L (98-107); Estimated GFR-MDRD 37; Glucose 62 mg/dL (80-115); Sodium 139 mmol/L (136-145)
[2017-06-13 05:58] LABS: Potassium 2.9 mmol/L (3.5-5.1)
[2017-06-13] MEDS ORDERED: Potassium Chloride 20 MEQ TAB PO SCH ×2 (06:15→08:00)
[2017-06-13] MEDS ORDERED: Gabapentin 100 MG CAP PO SCH (09:00)
[2017-06-13 15:46] VITALS: BP 132/72; TEMP 99.2
--- NOTE | 2017-06-13 16:12 | DIS ---
DATE OF ADMISSION: 06/12/2017 DATE OF DISCHARGE: 06/12/2017 DISCHARGE DISPOSITION: Discharged home. FINAL DIAGNOSES: 1. Acute renal failure, resolved. 2. Pyuria without evidence of infection. 3. Malignant neoplasm of the colon, metastatic. 4. Hypertension. DISCHARGE MEDICATIONS: Metoprolol 50 mg a day, gabapentin 100 mg twice a day. MEDICATIONS HELD: Hydrochlorothiazide, potassium. ALLERGIES: AVASTIN, VANCOMYCIN. CODE STATUS: FULL. PENDING AT THE TIME OF DISCHARGE: Urine cultures, no growth after 24 hours. HOSPITAL COURSE: The patient was seen in [place] emergency room, referred to the [facility] through [place] [facility] for acute renal failure. She was noted to have a cre atinine of 2.55, BUN of 52. She was given IV fluids. Her creatinine dropped to 1.67, BUN to 45. CB C revealed a white count of 10.8, hemoglobin 8.4, platelet count of 266,000. Urinalysis showed 7-11 white blood cells with no nitrite and no leukocyte esterase. The patient has no dysuria, hematuria, etc. The patient was feeling well this afternoon, desired to go home, and she is being discharged. She has been told not to take her hydrochlorothiazide. She has been told to see her PCP in 1 week fo r a followup. She was discharged on no antibiotic as the culture is negative to date and the white c ell count was normal and she is asymptomatic with a negative leukocyte esterase and nitrite; however, she has been told that she will be called if the culture does come back positive. She is very comfo rtable with that, desirous of going home and being discharged.
== END 2017-06-13 16:37 | disposition home or self-care (01) ==
LOC: ERS 14:37 → 2SW 17:52
PROVIDERS: ADMIT Internal Medicine; ATTEND Internal Medicine
DX: N17.9 Acute kidney failure, unspecified (principal); N39.0 Urinary tract infection, site not specified; I10 Essential (primary) hypertension; C80.1 Malignant (primary) neoplasm, unspecified; Z88.1 Allergy status to other antibiotic agents; Z88.8 Allergy status to other drugs, medicaments and biological substances; Z79.899 Other long term (current) drug therapy; Z95.828 Presence of other vascular implants and grafts; Z90.49 Acquired absence of other specified parts of digestive tract; Z82.5 Family history of asthma and other chronic lower respiratory diseases
CPT/HCPCS: 71020; 80048; 85025; 96361 ×2; 96374; 99285; G0378; 36415; A4216; B4087; J0696

== ENCOUNTER 2017-06-26 15:33 | Inpatient (IN) | payer MEDICARE, OTHER ==
[2017-06-26] MEDS ORDERED: Ondansetron HCl/PF 4 MG/2 ML Vial IVP PRN (16:06)
[2017-06-26] MEDS ORDERED: Ondansetron ODT 4 MG TAB PO PRN (16:06)
[2017-06-26] MEDS ORDERED: Sodium Chloride 0.9% 1,000 ML IV SCH (16:15)
[2017-06-26 16:56] LABS: ALT (SGPT) 286 U/L (8-55); AST (SGOT) 1483 U/L (5-34); Albumin 1.6 g/dL (3.4-4.8); Alkaline Phosphatase 431 U/L (40-150); Anion Gap 29 mmol/L (10-20); BUN (Urea Nitrogen) 94 mg/dL (9.8-20.1); Bilirubin, Total 8.3 mg/dL (0.2-1.2); Calc. Creatinine Clearance 0 mL/min (70-130); Calcium 8.6 mg/dL (7.8-10.44); Chloride 109 mmol/L (98-107); Estimated GFR-MDRD 28; Globulin 3.2 g/dL (2.4-3.5); Glucose 126 mg/dL (80-115); Potassium 4.6 mmol/L (3.5-5.1); Protein, Total 4.8 g/dL (6.0-8.3); Sodium 141 mmol/L (136-145)
[2017-06-26 17:04] LABS: Carbon Dioxide 8 mmol/L (23-31)
[2017-06-26 17:44] LABS: Anisocytosis SLIGHT = 6-15 cells (100X) (0-5/hpf); Hemoglobin 6.2 g/dL (12.0-16.0); Hypochromia SLIGHT = 6-15 cells (100X) (0-5/hpf); Lymphocytes 48 % (21-51); MDiff Complete? YES; Mean Corpuscular HGB CONC 30.9 g/dL (32.0-36.0); Mean Corpuscular Hemoglobin 31.5 pg (27.0-31.0); Mean Platelet Volume 9.6 fL (7.4-10.4); Monocytes 4 % (0-10); Neutrophil 48 % (42-75); PLT Morphology Comment Appears Decreased; Platelet Count 64 thou/uL (130-400); RBC Distribution Width 16.4 % (11.5-14.5); Red Blood Cell (RBC) Count 1.95 mill/uL (4.20-5.40); Target Cells SLIGHT = 2-5 cells (100X) (0-1/hpf); White Blood Cell (WBC) Count 1.1 thou/uL (4.8-10.8)
--- NOTE | 2017-06-26 17:52 | HP ---
DATE OF ADMISSION: 06/26/2017. CHIEF COMPLAINT: Abnormal labs. HISTORY OF PRESENT ILLNESS: This is a 67-year-old -Ivorian female with a known history of me tastatic lung cancer and she is on chemotherapy with Dr. Reza. She went to her [facility] and had a lab drawn for CBC which showed evidence of low hemoglobin of 6.5 and also had a very low neutrophil count per Dr. Reza, so Dr. Reza decided to admit this patient for blood transfusion and also for Granix subcu daily. The patient was seen at the Oncology floor. She was alert and orie nted, did not appear to be in any acute distress at this time. She denied having any chest pain, no nausea, no vomiting. Denied having any dizziness. She has a distended abdomen and according to Dr. Reza, the patient had a recent biliary stent placed by GI, which needs further evaluation as the p atient was having persistent elevation of her bilirubin. Right now, patient was directly admitted to the hospital so no labs were available currently to review. The patient denied having any constipat ion. Denied having any diarrhea. He denied having any burning on passing urine or frequent urinatio n. She denied having any cough or any exposure to any sick people at home. PAST MEDICAL HISTORY: 1. History of hypertension. 2. Metastatic lung cancer with metastasis to liver. PAST SURGICAL HISTORY: 1. The patient had a history of colon resection in the past. 2. MediPort placement. 3. History of a recent stent placement. 4. History of biliary stent placement. SOCIAL HISTORY: The patient is not a nonsmoker. No history of alcohol, no history of illicit drug u se. FAMILY HISTORY: Has asthma in her mother. Otherwise, no other significant family history of coronar y artery disease or any cancers. REVIEW OF SYSTEMS: All 12 systems are reviewed with the patient thoroughly and found to be negative at this time except the ones described in the HPI. The following complete review of systems was negative, unless otherwise mentioned in the HPI or below: Constitutional: Weight loss or gain, sense of well-being, ability to conduct usual activities, exerc ise tolerance. Skin/Breast: Rash, itching, changes in hair growth or loss, nail changes, breast lumps, tenderness, swelling, nipple discharge. Eyes: Vision, double vision, tearing, blind spots, pain. ENT/Mouth: Headaches (location, time of onset, duration, precipitating factors), vertigo, lightheadedness, injury. Vision, double vision, tearing, blind spots, pain, nose b leeding, colds, obstruction, discharge, dental difficulties, gingival bleeding, dentures, neck stiffn ess, pain, tenderness, masses in thyroid or other areas. Cardiovascular: Precordial pain, substernal distress, palpitations, syncope, dyspnea on exertion, or thopnea, nocturnal paroxysmal dyspnea, edema, cyanosis, hypertension, heart murmurs, varicosities, ph lebitis, claudication. Respiratory: Pain, shortness of breath, wheezing, stridor, cough, hemoptysis, fever or night sweats Gastrointestinal: Poor appetite, dysphagia, indigestion, abdominal pain, heartburn, eructation, naus ea, vomiting, hematemesis, jaundice, constipation, or diarrhea, abnormal stools (thiago-colored, tarry, bloody, greasy, foul smelling), flatulence, hemorrhoids, recent changes in bowel habits. Genitourinary: Urgency, frequency, dysuria, nocturia, hematuria, polyuria, oliguria, unusual (or norbert nge in) color of urine, stones, hesitancy, change in size of stream, dribbling, acute retention or in continence, libido, potency. Musculoskeletal: Pain, swelling, redness or heat of muscles or joints, limitation, of motion, muscular weakness, atrophy, cramps. Neurologic/Psychiatric: Convulsions, paralyses, tremor, incoordination, parasthesias, difficulties w ith memory of speech, sensory or motor disturbances, or muscular coordination (ataxia, tremor), emoti onal problems, anxiety, depression, previous psychiatric care, unusual perceptions, hallucinations. Allergy/Immunologic: Skin rash, anemia, bleeding tendency, polydipsia, polyuria, intolerance to heat or cold. ALLERGIES: VANCOMYCIN. HOME MEDICATIONS: Gabapentin 100 mg p.o. b.i.d. and metoprolol 50 mg p.o. daily. PHYSICAL EXAMINATION: VITAL SIGNS: Blood pressures are noted to be 87/51, heart rate is 81, respiratory rate is 20, satura tion is 96% on room air. GENERAL: The patient is seen lying in the bed supine, does not appear to be in acute distress at thi s time. She does not appear to be in any acute distress at this time. HEENT: Atraumatic, normocephalic. PERRLA. Extraocular movements were intact. Oral mucosa is pink and moist. CARDIOVASCULAR: S1, S2 normal. No murmurs, rubs or gallops. LUNGS: Bilateral air entry was equal. No wheezing, no crackles. ABDOMEN: Soft, nontender, no guarding, no rebound tenderness. Bowel sounds normal. MUSCULOSKELETAL: No calf tenderness. No pedal edema. EXTREMITIES: No joint redness, no joint swelling. SKIN: No cyanosis, no erythema, no edema, no rash, no pallor. NEUROLOGIC: Cranial nerve examination II-XII intact. No focal deficits were noted. LYMPHATICS: No obvious lymph nodes were noted in the axilla nor in the cervical area. LABORATORY DATA: Sodium 141, potassium 4.6, chloride is 109, bicarbonate is 8, BUN is 94, creatinine is 2.14, blood sugar 126. AST is 1483, ALT is 286, alkaline phosphatase is 431 and serum total prot ein is 4.8. Rest of the labs are pending at this time. CBC has been ordered and a complete CMP has also been ord ered with a urinalysis. ASSESSMENT AND PLAN: 1. Acute anemia likely chemotherapy induced. 2. Acute neutropenia, secondary to chemotherapy use. 3. Elevated liver enzymes. 4. Obstructive jaundice. 5. Hypertension. PLAN: 1. Start the patient on 2 units of PRBCs at this time and we will closely monitor the patient. Curr ently, the patient has low blood pressures and according to the family, she always had blood pressure s in the lower side, so this would most likely correct the blood pressures following the blood transf usion. We will closely monitor for any other source of bleeding. Dr. Reza has been consulted and she would be on the case to follow along with the patient. 2. The patient has elevated liver enzymes with a history of biliary stent according to the daughter. There is no documentation in the EMR about the biliary stent. Either if she has a biliary stent, i t could have been obstructed which could be causing the elevation of her bilirubin to 8 and also elev ation of the liver enzymes. Her alkaline phosphatase is also markedly elevated. At this time, I wou ld consult GI to see if the patient would need a MRCP for further evaluation. 3. The patient has acute neutropenia according to Dr. Reza and she has already ordered Granix 300 mcg subcu daily and will wait for the CBC with the differential count to look for any absolute neutr ophil count. 4. History of hypertension. We will hold off on the blood pressure medications at this time because of the lower blood pressures. 5. DVT prophylaxis, sequential compression devices because of high risk for bleeding. I spent 70 minutes on this patient.
[2017-06-26] MEDS: Cefepime 2 GM, Syringe 2.5 ML in Sterile Water 10 ML SLOW IVP SCH (19:47)
[2017-06-26] MEDS ORDERED: Calcium Carbonate 500 MG ChewTAB PO PRN (19:55)
[2017-06-26] MEDS: Famotidine 20 MG TAB PO SCH (20:23)
[2017-06-26] MEDS: Sodium Bicarbonate Tab 325 MG TAB PO SCH (20:51)
[2017-06-26] MEDS: Gabapentin 100 MG CAP PO SCH (20:52)
[2017-06-26] MEDS ORDERED: Norepinephrine 8 MG in Sodium Chloride 0.9% 250 ML 242 ML IVPB PRN (21:26)
[2017-06-26 21:40] LABS: Base Excess (BEa) -16.3 mEq/L (0 (+/-) 2.5); Calcium, Ionized 1.2 mmol/L (1.12-1.30); Hematocrit-ABG 18.8 % (36.0-47.0); Hemoglobin (Hb) 5.6 g/dL (12.0-16.0); O2 Tension (PaO2) 104.4 mmHg (80.0-100.0); pH, Arterial 7.28 (7.35-7.45)
[2017-06-26 21:43] LABS: ALV-art Gradient 20.535 (0-20); CO2 Tension 19.5 mmHg (35.0-45.0); Puncture Site LBA
[2017-06-26] MEDS ORDERED: Norepinephrine 8 MG/0.9% NS 250 ML ONE ×2 (22:13→22:15)
[2017-06-26] MEDS: Norepinephrine 8 MG in Sodium Chloride 0.9% 250 ML 242 ML IVPB PRN (22:23)
[2017-06-26 23:08] LABS: Troponin I 0.131 ng/mL (< 0.028)
[2017-06-26 23:12] LABS: CKMB 25.4 ng/mL (0-6.6)
--- NOTE | 2017-06-26 23:32 | PDOC.EVN ---
Event Note - Event Note Event Note: Called by Oncology nurse for hypotension.Chart reviewed. Pt seen and examined. no new complaints. CTA b/l.RRR Likley septic shock. Change to inpt and transfer to IM on pressors. SAMIA on tele.EKG checked . cardiology called by Nurse. will monitor. CE checked and high CB-MB w elevated troponin.Hesitant to anticoagulate as pt presented w pancytopenia and is receiving blood. No apparent GIB. Will give 1 dose ASA and recheck EKG and CE in few hours. Cardiology consult. Will monitor closely in ccu.Hemodynamically stable for now
[2017-06-26] MEDS ORDERED: Aspirin 81 mg Enteric Coated Tablet PO SCH (23:45)
[2017-06-27 01:24] LABS: Bilirubin Large (Negative); Blood, Urine Small (Negative); Clarity TURBID (Clear); Glucose, Urine (Dipstick) Negative (Negative); Leukocyte Small (Negative); Nitrite Negative (Negative); Protein, Urine (Dipstick) 30 mg/dL (Neg-Trace); Specific Gravity, Urine 1.024 (1.002-1.036)
[2017-06-27 01:27] LABS: Bacteria/HPF None Seen HPF (None Seen); Pathc Cast-AUWi Flag 2.16 (0-2.49); Squamous Epithelial 0-3 HPF (0-3)
[2017-06-27 01:30] LABS: Yeast-AUWi Flag 261.5 (0-25.0)
[2017-06-27 01:41] LABS: Crystals/HPF 3+ AMORPH URATES HPF (Negative); Hyaline Casts/LPF NONE SEEN LPF (0-3 Hyaline); RBC/HPF 0-3 HPF (0-3); Renal Epithelial None Seen HPF (0-3); Transitional Epithelial NONE SEEN HPF (0-3); Yeast-All Forms None Seen HPF (None Seen)
[2017-06-27] MEDS: HYDROcodone/Acetaminophen 5/325 mg Tablet PO PRN ×2 (01:48→21:29)
[2017-06-27] MEDS: Cefepime 2 GM, Syringe 2.5 ML in Sterile Water 10 ML SLOW IVP SCH ×3 (02:16→21:20)
[2017-06-27] MEDS ORDERED: Sodium Chloride 0.9% 500 ML IV SCH (03:30)
[2017-06-27 05:30] LABS: Lactic Acid 8.6 mmol/L (0.5-2.2)
[2017-06-27 05:34] LABS: ALT (SGPT) 310 U/L (8-55); AST (SGOT) 1639 U/L (5-34); Albumin 1.7 g/dL (3.4-4.8); Alkaline Phosphatase 403 U/L (40-150); Anion Gap 22 mmol/L (10-20); BUN (Urea Nitrogen) 102 mg/dL (9.8-20.1); Bilirubin, Total 8.8 mg/dL (0.2-1.2); Calc. Creatinine Clearance 30 mL/min (70-130); Calcium 8.3 mg/dL (7.8-10.44); Carbon Dioxide 12 mmol/L (23-31); Chloride 111 mmol/L (98-107); Estimated GFR-MDRD 28; Globulin 3.3 g/dL (2.4-3.5); Sodium 140 mmol/L (136-145)
[2017-06-27 05:47] LABS: Glucose 37 mg/dL (80-115)
[2017-06-27 05:50] LABS: CKMB 28.6 ng/mL (0-6.6); Troponin I 0.432 ng/mL (< 0.028)
[2017-06-27 05:52] LABS: White Blood Cell (WBC) Count 0.5 thou/uL (4.8-10.8)
[2017-06-27 05:54] LABS: Hemoglobin 8.7 g/dL (12.0-16.0); MDiff Complete? YES; Mean Corpuscular HGB CONC 32.1 g/dL (32.0-36.0); Mean Corpuscular Hemoglobin 31.3 pg (27.0-31.0); Mean Corpuscular Volume 97.6 fl (81.0-99.0); Mean Platelet Volume 10.8 fL (7.4-10.4); PLT Morphology Comment Appears Decreased; Platelet Count 43 thou/uL (130-400); Red Blood Cell (RBC) Count 2.79 mill/uL (4.20-5.40); Target Cells SLIGHT = 2-5 cells (100X) (0-1/hpf)
[2017-06-27] MEDS ORDERED: Dextrose 50% Abboject 50 ML SYRINGE ONE (05:59)
--- NOTE | 2017-06-27 07:46 | ULT ---
ABDOMINAL ULTRASOUND: DATE: 06/27/17. COMPARISON: None. HISTORY: A 67-year-old female with elevated bilirubin, abnormal LFTs. TECHNIQUE: Multiplanar, biggs scale, sonographic imaging of the abdomen is obtained. FINDINGS: The imaged aorta and IVC appear grossly unremarkable. The distal abdominal aorta is obscured by marni l gas. Imaged pancreas is unremarkable. However, the body and tail as well as portions of the head are completely obscured by bowel gas. The hepatic parenchyma is heterogeneous. The liver appears enlarged and there is a suggestion of num erous masses within the hepatic parenchyma. Primary concern is for diffuse metastatic disease. The right kidney measures 9.6 cm in craniocaudal dimension and demonstrates no stone, hydronephrosis, or mass lesion. Gallbladder is poorly assessed, nearly completely contracted with associated nonspecific wall thicken ing. No discrete gallstones are noted. CBD measures 4 mm, within normal limits. The spleen measure s up to 7.9 cm, within normal limits. The left kidney measures 10.5 cm in craniocaudal dimension and demonstrates no hydronephrosis. There is a small hypoechoic lesion in the lower pole of the left ki dney measuring up to 1.4 cm which likely represents a small cyst but is incompletely characterized on this examination. IMPRESSION: The liver is enlarged and heterogeneous with numerous masses, suggesting extensive metastatic disease . The gallbladder is vaguely/partially visualized. No obvious gallstones are noted. Common bile du ct within normal limits. POS: SARAH
[2017-06-27] MEDS: Famotidine 20 MG TAB PO SCH (08:20)
[2017-06-27] MEDS: Norepinephrine 8 MG in Sodium Chloride 0.9% 250 ML 242 ML IVPB PRN (08:25)
[2017-06-27] MEDS: Sodium Bicarbonate Tab 325 MG TAB PO SCH ×3 (09:00→21:17)
[2017-06-27] MEDS: Gabapentin 100 MG CAP PO SCH ×2 (09:00→21:17)
[2017-06-27] MEDS ORDERED: Famotidine/PF 20 mg/2ml Vial SLOW IVP SCH (09:00)
[2017-06-27] MEDS: GRANIX 300 MCG/0.5 ML VIAL SC SCH (10:22)
--- NOTE | 2017-06-27 11:39 | CON ---
DATE OF CONSULTATION: 06/27/2017 REASON FOR CONSULTATION: Septic shock. HISTORY OF PRESENT ILLNESS: History is obtained from the patient and from reviewing the patient's ch art. This is a 67-year-old female, who was hospitalized yesterday with neutropenic sepsis. She deve loped shock overnight and had to be transported to the CCU for initiation of Levophed. She is curren tly in no acute distress. She says she has been having a dry cough, but has not been congested. She has had subjective fever and chills. She has had some abdominal pain. Duration of symptoms has bee n about 2 days. No aggravating or alleviating factors. PAST MEDICAL HISTORY: 1. Metastatic lung cancer to the lung and liver. 2. Hypertension. PAST SURGICAL HISTORY: 1. Colon resection. 2. MediPort placement. 3. Cardiac stent placement. 4. Biliary stent placement. SOCIAL HISTORY: Nonsmoker, does not consume alcohol, does not use any illicit drugs. FAMILY MEDICAL HISTORY: Remarkable for asthma. REVIEW OF SYSTEMS: Twelve point review of systems otherwise negative, except for that in history of present illness. MEDICATIONS PRIOR TO ADMISSION: Potassium chloride 20 mEq daily, Colace 100 mg daily, Remeron 15 mg nightly, metoprolol 50 mg daily, hydrochlorothiazide 25 mg daily, gabapentin 100 mg b.i.d. PHYSICAL EXAMINATION: VITAL SIGNS: Temperature 97.7; pulse 87; blood pressure 86/48, now improved to 119/70. GENERAL: She is awake and alert, in no acute distress. HEENT EXAM: Sclerae slightly icteric. Oropharynx dry. NECK: No JVD. LUNGS: Clear to auscultation without wheezing or rhonchi. CARDIOVASCULAR: S1, S2 regular, without murmur. ABDOMEN: She has a very protuberant liver, without tenderness. Large midline surgical scar, which i s well healed. EXTREMITIES: No clubbing, cyanosis, or edema. She has a small excoriation over left tibial region. LABORATORY DATA: Sodium 140, potassium 5, chloride 111, CO2 of 12, BUN 102, creatinine 2.1, glucose 68. Lactate 8.6. CK MB 28.6, troponin 0.4, AST 1639, ALT 310, total bilirubin 8.8, pH 7.28, pCO2 of 19, PO2 of 104, that was on room air. D-dimer greater than 20. White blood cell count 0.5, hemoglo bin 8.7, hematocrit 27.2, platelet count 43. ASSESSMENT: 1. Neutropenic sepsis - likely source is gastrointestinal in nature. She has a biliary stent in [facility] and Gastroenterology has been consulted to reevaluate that. It looks like that was placed back in 08/2016. 2. Septic shock. 3. Metastatic lung cancer. PLAN: 1. Agree with fluid resuscitation with the albumin. Agree with bicarbonate drip. 2. Broad-spectrum IV antibiotics with cefepime and Levaquin as GI source would be most likely bacter ia involved. 3. Start Solu-Cortef in stress doses. 4. Monitor glucose fairly closely to make sure she is not getting hypoglycemic.
--- NOTE | 2017-06-27 12:26 | CON ---
DATE OF CONSULTATION: 06/27/2017 HISTORY OF PRESENT ILLNESS: Ms. Lauren is a 67-year-old black female, who was admitted to [facility]. She was set to do her chemotherapy due to a metastatic colon cancer - metastasis to the liver . We are now being consulted for her acute kidney injury on top of her chronic renal failure. The p atient was said to have had a history of colon cancer, had resection almost 7 years ago. REVIEW OF SYSTEMS: Positive for generalized malaise, decreased appetite, decreased energy level. No headache, no diplopia, no chest pain, no shortness of breath, no nausea, no vomiting, no diarrhea, n o headache, no fever, or chills. No abdominal pain, no shortness of breath, no dysuria, no urinary f requency, no hematochezia, no melena, no hematemesis. PAST MEDICAL HISTORY: 1. Colon cancer with liver metastasis. 2. Hypertension. 3. Status post sepsis. PAST SURGICAL HISTORY: 1. Status post colonoscopy. 2. Status post colon resection for her underlying colon cancer - metastatic to the liver and lungs. 3. Status post MediPort placement. SOCIAL HISTORY: The patient is , 4 children, lives with her , lives in the [facility]. Currently, no smoking, no alcohol intake, but used to be a heavy smoker, status post blood trans fusions. Sedentary lifestyle. ALLERGIES: VANCOMYCIN and AVASTIN. TRAUMA: None. IMMUNIZATIONS: Up to date. HOSPITALIZATIONS: Please see past medical history. PHYSICAL EXAMINATION: VITAL SIGNS: Blood pressure is 180/70, heart rate 70. GENERAL: Noted to be awake, lethargic, not in overt distress. SKIN: Adequate turgor. HEENT: She has slightly pale conjunctivae, anicteric sclerae. NECK: No neck mass, no carotid bruits, no JVD. CHEST: No deformities. LUNGS: Clear breath sounds. No wheezing. HEART: Normal sinus rhythm. No murmur, no gallops, or rubs. ABDOMEN: Globular, soft, nontender, no masses. EXTREMITIES: No edema. MEDICATIONS: 06/27/2017 was reviewed. LABORATORY DATA: 06/27/2017 - White count 0.5, hemoglobin 8.7. Sodium 140, potassium 5, chloride 11 1, carbon dioxide 12, BUN 102, and creatinine 2.13. Lactic acid 8.6, AST 1639, ALT 310, and albumin 1.7. ASSESSMENT AND PLAN: 1. Acute kidney injury on top of chronic renal failure - Urinalysis showed a very concentrated urine with no evidence of pigmented granular cast to suggest acute tubular necrosis. She most likely has hemodynamically mediated renal dysfunction. I agree with volume repletion with this patient. Consid er albumin infusion 25 grams IV q.8. No indication for any dialytic intervention. 2. Colon cancer with liver and lung mets. Continue supportive care. Patient is on chemotherapy. O verall, prognosis remains guarded.
[2017-06-27] MEDS: Hydrocortisone Sod Succ/PF 100 mg/2 ml Vial IVP SCH ×2 (12:30→18:03)
[2017-06-27] MEDS: Sodium Bicarbonate 150 MEQ in Dextrose 5% in Water 850 ML IV SCH ×4 (14:03→22:40)
[2017-06-27] MEDS: Albumin 25% 25 GM/100 ML BOT IVPB SCH (18:03)
--- NOTE | 2017-06-27 19:19 | CON ---
DATE OF CONSULTATION: 06/27/2017 REASON FOR CONSULTATION: EKG changes. PRIMARY CARE PROVIDER: Dr. Borrero. HISTORY OF PRESENT ILLNESS: Ms. Lauren is a pleasant 67-year-old woman, who recently was admitted from Oncology to the ICU due to sepsis-like symptoms. She had EKG findings suggesting ST segment elevati on. I was called on the evening of 06/26/2017 with the findings. I did review the EKG on 06/26/2017 . Her EKG did suggest ST segment elevation, which appeared unchanged from earlier echo. Patient was also asymptomatic. No chest pain or pressure noted. No shortness of breath. She has no history of coronary artery disease. Her troponin was also negative with elevated CK-MB. She did require press or support for blood pressure management. She was found to be in neutropenic. PAST MEDICAL HISTORY: Metastatic lung disease to the lung and liver, hypertension, recent biliary st ent placement, and MediPort placement. PAST SURGICAL HISTORY: Colon resection. FAMILY HISTORY: Negative for CAD. SOCIAL HISTORY: No current tobacco or alcohol use. HOME MEDICATIONS: Include hydrochlorothiazide, Colace, potassium, Remeron, metoprolol, and gabapenti n. REVIEW OF SYSTEMS: Ten-point review of systems is reviewed and as above negative. PHYSICAL EXAMINATION: GENERAL: Patient is a pleasant female who is in no acute distress. The patient appears her stated a ge. VITAL SIGNS: Blood pressure 100/59, pulse 90, temperature afebrile. NEUROLOGIC: The patient is alert and oriented times 3 with no focal neurologic deficits. HEENT: Sclerae without icterus. Mouth has moist mucous membranes with normal pallor. NECK: No JVD. Carotid upstroke brisk. No bruits bilaterally. LUNGS: Clear to auscultation with unlabored respirations. BACK: No scoliosis or kyphosis. CARDIAC: Regular rate and rhythm with normal S1 and S2. No S3 or S4 noted. No significant rubs, murmurs, thrills, or gallops noted throughout the precordium. PMI is not displaced. There is no parasternal heave. ABDOMEN: Soft, nontender, nondistended. No peritoneal signs present. No hepatosplenomegaly. No abnormal striae. EXTREMITIES: 2+ femoral and 2+ dorsalis pedis pulses. No cyanosis, clubbing, or edema. SKIN: No gross abnormalities. PERTINENT LABORATORY DATA: Lactic acid level 13. White blood cell count 0.5. Initial hemoglobin of 6, creatinine 2.15, platelet count of 43, pCO2 of 19. Initial troponin 0.131 with a CK-MB of 25. IMPRESSION: 1. EKG change. 2. Septic shock. 3. Metastatic lung cancer. RECOMMENDATIONS: From a CV standpoint, Ms. Lauren has no symptoms suggesting acute coronary syndrome o r ST segment elevation CO. She has no chest pain or pressure noted. She is neutropenic with renal i nsufficiency in addition to marked anemia with hemoglobin of 6. At this point, I recommend conservat fred therapy. She was given aspirin. We would not anticoagulate due to hemoglobin of 6. Again, she appears to have no symptoms suggesting angina. She is also on pressor agents for septic shock and an tibiotic therapy. We would recommend an echo Doppler.
[2017-06-27] MEDS ORDERED: Norepinephrine 8 MG/0.9% NS 250 ML ONE (19:24)
--- NOTE | 2017-06-28 01:37 | CON ---
DATE OF CONSULTATION: 06/27/2017 HISTORY OF PRESENT ILLNESS: Ms. Lauren is a 67-year-old female with a long history of metastatic color ectal cancer, which was in remission until 04/2017. At this time, she did relapse in the liver and etta wagner discussed putting her back on palliative chemotherapy. This was prolonged as she started palliativ e chemotherapy last week, because she did not want to start chemotherapy over the holidays. Over the last 2 months, she has developed increasing right upper quadrant abdominal pain as well as weight lo ss and fatigue. She also noticed last week on the day of treatment that her eyes were somewhat yello w. She was treated approximately 1 week ago with 5-FU Leucovorin, irinotecan and Erbitux treatment. On this hospitalization, she presented with weakness, fatigue, low blood counts and low blood pressu re into the office. She denies fevers or chills, but was not eating anything. She has had some mini mal diarrhea as well as rash from the chemotherapy. Overall, she just complains of being weak. On a dmission, she was noted to be pancytopenic as well as hypotensive and was placed in the ICU for press or support. She is somewhat stabilized this morning and has not had her pressor support escalated, s he feels like she is a little bit better after getting IV fluids. PAST MEDICAL HISTORY: 1. Metastatic colon cancer. 2. Hypertension. 3. History of biliary obstruction secondary to colorectal malignancy in the past, status post biliar y stent placement. CURRENT MEDICATIONS: 1. [place] 5/325 one p.o. q.4 hours. p.r.n. 2. Albumin 25 grams IV q.8 hours. 3. Cefepime 2 grams IV q.12 hours. 4. Pepcid 20 mg p.o. daily. 5. Neurontin 100 mg p.o. b.i.d., this is being held. 6. Hydrocortisone 100 mg IV q.6 hours. 7. Lactulose 20 grams p.o. daily p.r.n. 8. Levofloxacin 750 mg IV daily. 9. Metoprolol 50 mg p.o. daily, this is being held. 10. Levophed titrated to keep blood pressure per the ICU parameters. 11. Zofran 4 mg p.o. q.6 hours. p.r.n. 12. Sodium bicarbonate 650 mg p.o. t.i.d. 13. Normal saline with bicarbonate drip. 14. Granix 300 mcg subcutaneous daily. ALLERGIES: BEVACIZUMAB and VANCOMYCIN. SOCIAL HISTORY: She is here with her daughter still quite supportive. She denies any significant to bacco or alcohol use. FAMILY HISTORY: Negative for colorectal malignancy. REVIEW OF SYSTEMS: Otherwise, 10-point review of systems is negative. Please see the history of pre sent illness. PHYSICAL EXAMINATION: VITAL SIGNS: She remains afebrile, O2 sat 100% on room air, respiration rate 16, heart rate in the 8 0s, blood pressure 110/65 on pressor support. GENERAL: She is awake and oriented, but somewhat sleepy. HEENT: Extraocular muscles are intact, pupils are equal, reactive to light. She does have scleral i cterus. NECK: Supple, without lymphadenopathy. CARDIOVASCULAR: Regular rhythm. LUNGS: Clear to auscultation. ABDOMEN: Hypoactive bowel sounds. soft. Her liver is palpable and the right upper quadrant is very firm, nontender, but well below the costal margin. LABORATORY DATA: White blood cell count today 0.5, hemoglobin 8.7, up from 6.2 after transfusion, pl atelets 43. Lactic acid 8.6 down from 13. Sodium 140, potassium 5.0, chloride 111, CO2 of 12, BUN 1 02, creatinine 2.1, glucose 37, total bilirubin 8.8, AST 1639, ALT 310, alkaline phosphatase 403. Se rum total protein 5.1 and albumin 1.7. Abdominal ultrasound done on this admission showed the liver is enlarged and heterogeneous with numer ous masses, suggestive extensive metastatic disease. There are no obvious gallstone. The common bandar e duct is within normal limits. ASSESSMENT: Ms. Lauren is a 67-year-old female: 1. Metastatic colorectal cancer. 2. Hyperbilirubinemia, likely secondary to metastatic disease. 3. Pancytopenia secondary to chemotherapy. 4. Hypotension and lactic acidosis with metabolic acidosis likely secondary to sepsis. PLAN: 1. She is already on IV antibiotics and we have already added filgrastim, which will be continued. 2. I would follow her CBC closely, as she may in fact need further transfusions on this hospitalizat ion. 3. IV fluids will be changed to D5. 4. She will be maintained in ICU with pressure support, we appreciate all the Pulmonary help. 5. She remains full code, at this time I do think this is appropriate as it would be appropriate to support her through this first cycle of chemotherapy. She may in fact improve over the next week to 10 days and we will follow with you closely
[2017-06-28] MEDS: Hydrocortisone Sod Succ/PF 100 mg/2 ml Vial IVP SCH ×4 (01:46→17:50)
[2017-06-28] MEDS: Albumin 25% 25 GM/100 ML BOT IVPB SCH ×3 (03:55→17:50)
[2017-06-28 05:31] LABS: Prothrombin Time 48.7 SEC (12.0-14.7)
[2017-06-28 05:37] LABS: ALT (SGPT) 293 U/L (8-55); AST (SGOT) 1365 U/L (5-34); Albumin 2.5 g/dL (3.4-4.8); Alkaline Phosphatase 308 U/L (40-150); Anion Gap 22 mmol/L (10-20); BUN (Urea Nitrogen) 101 mg/dL (9.8-20.1); Bilirubin, Total 9.7 mg/dL (0.2-1.2); Calc. Creatinine Clearance 28 mL/min (70-130); Calcium 8.1 mg/dL (7.8-10.44); Carbon Dioxide 15 mmol/L (23-31); Chloride 109 mmol/L (98-107); Estimated GFR-MDRD 25; Globulin 2.5 g/dL (2.4-3.5); Glucose 68 mg/dL (80-115); Potassium 4.4 mmol/L (3.5-5.1); Sodium 142 mmol/L (136-145)
[2017-06-28 05:45] LABS: Hemoglobin 6.9 g/dL (12.0-16.0); Mean Corpuscular HGB CONC 31.8 g/dL (32.0-36.0); Mean Corpuscular Hemoglobin 30.7 pg (27.0-31.0); Mean Corpuscular Volume 96.6 fl (81.0-99.0); Mean Platelet Volume 12.1 fL (7.4-10.4); Platelet Count 18 thou/uL (130-400); RBC Distribution Width 15.2 % (11.5-14.5); Red Blood Cell (RBC) Count 2.23 mill/uL (4.20-5.40); White Blood Cell (WBC) Count 0.3 thou/uL (4.8-10.8)
[2017-06-28 05:47] LABS: INR-International Normal Ratio 4.9
--- NOTE | 2017-06-28 06:19 | CON ---
DATE OF CONSULTATION: 06/27/2017 REASON FOR CONSULTATION: Possible cholangitis. HISTORY OF PRESENT ILLNESS: Ms. Lauren is a pleasant 67-year-old female with metastatic colon cancer. She was admitted to the hospital on 06/26/2017, secondary to severe anemia, neutropenia after recent chemotherapy. She was noted to have increasing levels of bilirubin. We were asked to reevaluate he r. 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 At that time, she had a massive intrahepatic ductal dilatation. Presently, the patient is without complaints. She was admitted to the hospital and then transferred to the ICU . She had some hypotension and was concerned about infection. She was transferred to the ICU for po ssible septic shock and started on pressors. PAST MEDICAL HISTORY: 1. 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 2. Hypertension. 3. No metastatic disease to liver and lung. PAST SURGICAL HISTORY: 1. Colon resection, right side. 2. Multiple plastic stents and metallic stent placed in 08/2016. 3. MediPort placement. SOCIAL HISTORY: She does not drink, smoked in the past. ALLERGIES: VANCOMYCIN, ATORVASTATIN. PRESENT MEDICATIONS: Albumin 25 IV q.8, Tums p.r.n., cefepime, Pepcid, Neurontin, hydrocortisone, So mali-Cortef, lactulose, levofloxacin, metoprolol, norepinephrine, Zofran, bicarbonate. PHYSICAL EXAMINATION: GENERAL: The patient is resting comfortably in bed. She is in no distress at present. VITAL SIGNS: Blood pressure is 99 to 96 over 37 to 56, respirations are 18, temperature is 96. She is icteric. LUNGS: Clear. HEART: Regular rhythm. ABDOMEN: Notable for massive hepatomegaly extending down to her iliac crest on the right side. Live r is nodular and firm. There is no rebound. There is no guarding. LABORATORY AND X-RAY FINDINGS: White count 0.5, hemoglobin 8.7, platelet count of 43,000. She recei pierre 2 units of blood, one on the 9th and one on . INR is 2.6 on the . Sodium is 140, potassi um is 5, bicarbonate 12, anion gap 22, BUN 102, creatinine 2.13. Glucose 68, 65, and 74. Lactic aci d was 8.6, it was 10.2 on the 6th of this month, 13 on the 9th. Bilirubin is 8.8, it was 1.5 on the . AST is 1639, it was 1282 on the 9th, 474 on the 2nd of this month. ALT is 310, it was 286 yes terday. Alkaline phosphatase 403, 664 on the 1st and 6th of this month, it was 198 on the 3rd of las t month. CEA of 77 on 06/19/2017, it was 26 on 05/15/2017. CAT scan imaging shows massive hepatic metastasis in the liver when compared to the films. She has m arked expansion of the liver. Bile duct was normal. Common bile duct appears patent. There is no i ntrahepatic ductal dilatation and no hydronephrosis is present. There is marked lymphadenopathy in t he cindy hepatis as well as numerous nodular densities in the bilateral lungs. When comparing these films to the CAT scan from 04/18/2017, there is a noticeable difference in size of the liver and the amount of intrahepatic disease. ASSESSMENT: 1. Massive elevation of AST, ALT, bilirubin and now increasing INR and there is some degree of liver failure seemingly related to massive replacement of liver by tumor. I cannot rule out the possibili ty of tumor ingrowth of hepatic vein or portal vein causing ischemic effect as well. At this time, t here seems to be no signs of biliary obstruction with no intrahepatic ductal dilatation, have been se en previously when stents were initially placed. 2. Neutropenia with recent chemotherapy. It is hard to tell how much this effect may be related to infection or to her neutropenia. She is being supported aggressively. 3. At this time, I see no role for repeat ERCP as there seems to be no signs of biliary obstruction on radiographic films and there is noticeable massive change in the amount of tumor in the liver more than it would explain the change in liver function test and hepatic function. I am concerned that i f she does not respond to the chemotherapy was recently given and we may end up in a situation, which shows fulminant liver failure from replacement of the liver by tumor. There is not a treatment for that and that would be a fatal event. I have raised these concens to the family and patient, but the y state they are trying to stay on the positive side and see what the effect of the chemotherapy will be. 4. Elevated BUN and creatinine. This may be related to sepsis or hypoperfusion, but hepatorenal calvin lure is something to consider. I agree with use of the albumin.
[2017-06-28] MEDS: Norepinephrine 8 MG in Sodium Chloride 0.9% 250 ML 242 ML IVPB PRN (06:48)
[2017-06-28] MEDS ORDERED: Famotidine 20 MG TAB PO SCH (09:00)
--- NOTE | 2017-06-28 09:01 | PRG ---
DATE OF SERVICE: 06/28/2017 The patient remains encephalopathic. Her family says it is because of some pain medication she recei pierre last night. Ammonia level was checked and it is only 30. PHYSICAL EXAMINATION: VITAL SIGNS: Temperature is 97.3, pulse 99, blood pressure 115/68, 24-hour intake 3796 in, output 96 5. HEENT: Icteric sclerae present. Oropharynx dry. NECK: No JVD. LUNGS: Clear. CARDIAC: S1 and S2 regular. ABDOMEN: Grossly distended liver. EXTREMITIES: No edema. LABORATORY DATA: Sodium 142, potassium 4.4, chloride 109, CO2 15, BUN 101, creatinine 2.3, glucose 6 8, AST 1365, ALT 293, alkaline phosphatase 308, CEA levels 310. White blood cell count 0.3, hemoglob in 6.9, hematocrit 21.5, platelet count 18. INR is 4.9. Cultures show no growth to date. ASSESSMENT: 1. Neutropenic sepsis. 2. Metastatic colon cancer. 3. Coagulopathy with grossly elevated liver function tests. PLAN: All of this is probably secondary to metastatic colon cancer to the liver. I think her progno sis is horrible and I have spoken with the family, trying to prepare them to expect the worst. I thi nk it is unrealistic to believe that she is going to return to her baseline. I think the best we can do is continue the antibiotics, but I think it might be time to involve palliative care or hospice.
[2017-06-28] MEDS: Cefepime 2 GM, Syringe 2.5 ML in Sterile Water 10 ML SLOW IVP SCH (09:05)
[2017-06-28] MEDS: GRANIX 300 MCG/0.5 ML VIAL SC SCH (09:05)
--- NOTE | 2017-06-28 09:10 | PDOC.PN ---
- Subjective Encounter Start Date: 06/27/17 Encounter Start Time: 13:00 Patient is sen today, Alert and oriented, Daughter at [place], discussed about the prognosis and explained unspecified source of sepsis. - Objective Resuscitation Status: Resuscitation Status FULL:Full Resuscitation MAR Reviewed: Yes Vital Signs & Weight: Vital Signs (12 hours) Temp Pulse Resp Pulse Ox 06/28/17 07:35 97.6 F 94 18 99 06/28/17 07:00 97.7 F 06/28/17 05:00 97.3 F L Weight Admit Weight 162 lb Weight 173 lb 4.533 oz Most Recent Monitor Data Heart Rate from ECG 99 NIBP 115/68 NIBP BP-Mean 90 Respiration from ECG 24 SpO2 100 I&O: 06/27/17 06/28/17 06/29/17 06:59 06:59 06:59 Intake Total 2110.5 3796 Output Total 115 965 35 Balance 1995.5 2831 -35 Result Diagrams: 06/28/17 04:30 06/28/17 04:30 Additional Labs: Accuchecks 06/27/17 06/27/17 06/27/17 19:46 19:39 09:09 POC Glucose 69 L 81 68 L Radiology Reviewed by me: Yes Phys Exam - Physical Examination HEENT: PERRLA Neck: no nodes, no JVD Respiratory: no wheezing, no rales Cardiovascular: RRR, no significant murmur Gastrointestinal: non-tender, positive bowel sounds Musculoskeletal: pulses present, edema present Neurological: non-focal, normal sensation, moves all 4 limbs Lymphatic: no nodes Psychiatric: normal affect, A&O x 3 Skin: no rash, normal turgor Dx/Plan (1) Sepsis Code(s): A41.9 - SEPSIS, UNSPECIFIED ORGANISM Status: Acute Qualifiers: Sepsis type: sepsis due to unspecified organism Qualified Code(s): A41.9 - Sepsis, unspecified organism Plan: Pt is on Levo and Cefipime, per pulmoanry, Will cotninue to monitor, lactic acid improving, on Bicarb drip yesterday. Waiting on Blood Cultures. pt on granix 300mg mcg sc daily per Dr. Reza till Absolute neutrophil count >1500 (2) KIM (acute kidney injury) Code(s): N17.9 - ACUTE KIDNEY FAILURE, UNSPECIFIED Status: Acute Plan: Continue with IV fluids, Changed to Albumin last Night per pulmonary, will continue, pt has third spacing from Liver metastasis. Nephrology consulted, avoid nephrotoxic meds. Renally dose Abx. (3) Elevated troponin Code(s): R74.8 - ABNORMAL LEVELS OF OTHER SERUM ENZYMES Status: Acute Comment: marciano demand ischemia due to Sepsis (4) Hypokalemia Code(s): E87.6 - HYPOKALEMIA Status: Acute Plan: Treatment per ICu protocol. (5) Colon cancer Code(s): C18.9 - MALIGNANT NEOPLASM OF COLON, UNSPECIFIED Status: Chronic Plan: Pt on Chemotherapy from Dr. Reza, Will continue Chemo after this Admission per Dr. Reza. (6) Liver metastases Code(s): C78.7 - SECONDARY MALIG NEOPLASM OF LIVER AND INTRAHEPATIC BILE DUCT Status: Chronic - Plan continue antibiotics, PT/OT, incentive spirometry, DVT proph w/lovenox * . - Discharge Day Encounter end time: 13:30 Review of Systems - Review of Systems Constitutional: weakness Eyes: negative: Pain, Vision Change, Conjunctivae Inflammation, Eyelid Inflammation, Redness, Other ENT: negative: Ear Pain, Ear Discharge, Nose Pain, Nose Discharge, Nose Congestion, Mouth Pain, Mouth Swelling, Throat Pain, Throat Swelling, Other Respiratory: negative: Cough, Dry, Shortness of Breath, Hemoptysis, SOB with Excertion, Pleuritic Pain, Sputum, Wheezing Cardiovascular: negative: chest pain, palpitations, orthopnea, paroxysmal nocturnal dyspnea, edema, light headedness, other Gastrointestinal: negative: Nausea, Vomiting, Abdominal Pain, Diarrhea, Constipation, Melena, Hematochezia, Other Genitourinary: negative: Dysuria, Frequency, Incontinence, Hematuria, Retention , Other Musculoskeletal: negative: Neck Pain, Shoulder Pain, Arm Pain, Back Pain, Hand Pain, Leg Pain, Foot Pain, Other Skin: negative: Rash, Lesions, Lb, Bruising, Other Neurological: negative: Weakness, Numbness, Incoordination, Change in Speech, Confusion, Seizures, Other - Medications/Allergies Allergies/Adverse Reactions: Allergies Allergy/AdvReac Type Severity Reaction Status Date / Time bevacizumab [From Avastin] Allergy Verified 06/26/17 18:38 vancomycin Allergy Verified 06/26/17 18:38 Medications: Current Medications Hydrocodone Bitart/Acetaminophen ([place] 5/325) 1 tab PO Q4H PRN PRN Reason: Moderate Pain (4-6) Last Admin: 06/27/17 21:29 Dose: 1 tab Albumin Human (Albumin 25%) 25 gm IVPB 0300,1100,1900 [facility] Stop: 06/29/17 11:01 Last Admin: 06/28/17 03:55 Dose: 25 gm Calcium Carbonate (Tums) 500 mg PO Q6H PRN PRN Reason: . Last Admin: 06/26/17 20:23 Dose: 500 mg Famotidine (Pepcid) 20 mg PO DAILY [facility] Gabapentin (Neurontin) 100 mg PO BID [facility] Last Admin: 06/27/17 21:17 Dose: 100 mg Hydrocortisone Sodium Succinate (Solu-Cortef) 100 mg IVP Q6HR [facility] Last Admin: 06/28/17 06:31 Dose: 100 mg Norepinephrine Bitartrate 8 mg (/ Sodium Chloride) 250 mls @ 0 mls/hr IVPB PRN PRN; Protocol; Titrate PRN Reason: To maintain MAP > 65 Last Admin: 06/28/17 06:48 Dose: 250 mls Cefepime HCl 2 gm/ Syringe 2.5 (ml/ Sterile Water) 12.5 mls @ 150 mls/hr SLOW IVP Q12HR [facility] Last Admin: 06/28/17 09:05 Dose: 12.5 mls Levofloxacin 750 mg/ Device 150 mls @ 100 mls/hr IVPB Q2D@1600 [facility] Sodium Bicarbonate 150 meq/ (Dextrose/Water) 1,000 mls @ 100 mls/hr IV .Q10H [facility] Last Admin: 06/27/17 22:40 Dose: 1,000 mls Lactulose (Lactulose) 20 gm PO DAILYPRN PRN PRN Reason: Constipation Metoprolol Succinate (Toprol Xl) 50 mg PO DAILY [facility] Last Admin: 06/27/17 08:32 Dose: Not Given Ondansetron HCl (Zofran Odt) 4 mg PO Q6H PRN PRN Reason: Nausea/Vomiting Ondansetron HCl (Zofran) 4 mg IVP Q6H PRN PRN Reason: Nausea/Vomiting Last Admin: 06/26/17 17:14 Dose: 4 mg Sodium Bicarbonate (Bicarbonate, Sodium) 650 mg PO TID [facility] Last Admin: 06/27/17 21:17 Dose: 650 mg Tbo-Filgrastim (Granix) 300 mcg SC DAILY [facility] Last Admin: 06/28/17 09:05 Dose: 300 mcg
[2017-06-28] MEDS: Gabapentin 100 MG CAP PO SCH (09:11)
[2017-06-28] MEDS: Sodium Bicarbonate Tab 325 MG TAB PO SCH ×2 (09:12→14:08)
[2017-06-28] MEDS ORDERED: Famotidine/PF 20 mg/2ml Vial SLOW IVP SCH (09:30)
--- NOTE | 2017-06-28 09:46 | PRG ---
DATE OF SERVICE: 06/28/2017 SERVICE: Renal Medicine. SUBJECTIVE: Ms. Lauren is a 67-year-old black female with known history of metastatic lung cancer/colo n cancer, admitted for pancytopenia. Renal service saw the patient for her acute kidney injury. On initial evaluation, she may simply have a hemodynamically mediated renal dysfunction. Please note, h er urinalysis did not show evidence of acute tubular necrosis. She is currently being optimized with her hemodynamics. She was started on albumin infusion yesterday. She is also on pressor support. Due to the metabolic acidosis, the patient is also on isotonic bicarbonate. The patient is more conf used today and seems to be somewhat obtunded. OBJECTIVE: VITAL SIGNS: Blood pressure is 115/68, heart rate 99, respiratory rate 24, pulse ox 100%. GENERAL: The patient is awake and obtunded, not responding to verbal stimuli. She does have spontan eous eye opening. HEENT: Pale conjunctivae, anicteric sclerae. NECK: No neck mass, no carotid bruits, no JVD. CHEST: No deformities. LUNGS: Clear. Decreased breath sounds. No wheezing, no crackles. HEART: Normal sinus rhythm. No murmur, no gallops, no rubs. ABDOMEN: Globular, soft, nontender, no masses. EXTREMITIES: No edema. MEDICATIONS: Of 06/28/2017 was reviewed. LABORATORY DATA: Of 06/28/2017, white count 0.3, hemoglobin 6.9, platelet count 18,000. Sodium 142, potassium 4.4, chloride 109, carbon dioxide 15, BUN 101, creatinine 2.31. AST 1365, ALT 293, albumi n 2.5. CEA is 310. ASSESSMENT AND PLAN: Acute kidney injury - consider hemodynamically mediated renal dysfunction. The patient is currently on IV isotonic bicarbonate and on pressor support. We have also initiated salt poor albumin. If in spite of these maneuvers and trying to optimize hemodynamics and without improv ement of the renal function, we may need to involve the possibility of a superimposed acute tubular n ecrosis. Please note, creatinine is slightly higher at 2.31 when compared to yesterday where it was at 2.13. No indication for any dialytic intervention. Continue to optimize hemodynamics. Consider transfusion with packed red blood cells today. Overall, prognosis remains guarded.
[2017-06-28] MEDS: Sodium Bicarbonate 150 MEQ in Dextrose 5% in Water 850 ML IV SCH ×4 (10:04→19:07)
--- NOTE | 2017-06-28 15:42 | PDOC.PN ---
- Subjective Encounter Start Date: 06/28/17 Encounter Start Time: 11:30 patient remains altered and not responding to questions, most of questions were answered by daughter at bedside, explained about poor prognosis. - Objective Resuscitation Status: Resuscitation Status FULL:Full Resuscitation MAR Reviewed: Yes Vital Signs & Weight: Vital Signs (12 hours) Temp Pulse Pulse Resp BP Pulse Ox 06/28/17 14:15 97.6 F 93 17 115/66 98 06/28/17 13:44 97.6 F 92 14 106/58 L 100 06/28/17 11:31 96.8 F L 93 18 96/50 L 99 06/28/17 11:14 97.2 F L 95 16 104/57 L 99 06/28/17 11:00 97.2 F L 06/28/17 07:35 97.6 F 94 18 99 06/28/17 07:00 97.7 F 06/28/17 05:00 97.3 F L Weight Admit Weight 162 lb Weight 173 lb 4.533 oz Most Recent Monitor Data Heart Rate from ECG 93 NIBP 117/52 NIBP BP-Mean 82 Respiration from ECG 15 SpO2 99 I&O: 06/27/17 06/28/17 06/29/17 06:59 06:59 06:59 Intake Total 2110.5 3796 450 Output Total 115 965 640 Balance 1995.5 2831 -190 Result Diagrams: 06/28/17 04:30 06/28/17 04:30 Additional Labs: Accuchecks 06/27/17 06/27/17 19:46 19:39 POC Glucose 69 L 81 Radiology Reviewed by me: Yes Phys Exam - Physical Examination HEENT: PERRLA, moist MMs (Icteric sclera.) Respiratory: no wheezing, no rales Cardiovascular: RRR, no significant murmur Gastrointestinal: non-tender (Distended Abdomen, No marni sound heard, or minimal.) Musculoskeletal: edema present Neurological: non-focal Lymphatic: no nodes Skin: no rash, normal turgor Dx/Plan (1) Sepsis Code(s): A41.9 - SEPSIS, UNSPECIFIED ORGANISM Status: Acute Qualifiers: Sepsis type: sepsis due to unspecified organism Qualified Code(s): A41.9 - Sepsis, unspecified organism (2) KIM (acute kidney injury) Code(s): N17.9 - ACUTE KIDNEY FAILURE, UNSPECIFIED Status: Acute (3) Elevated troponin Code(s): R74.8 - ABNORMAL LEVELS OF OTHER SERUM ENZYMES Status: Acute Comment: likley demand ischemia due to Sepsis (4) Hypokalemia Code(s): E87.6 - HYPOKALEMIA Status: Acute (5) Colon cancer Code(s): C18.9 - MALIGNANT NEOPLASM OF COLON, UNSPECIFIED Status: Chronic (6) Liver metastases Code(s): C78.7 - SECONDARY MALIG NEOPLASM OF LIVER AND INTRAHEPATIC BILE DUCT Status: Chronic - Plan * . (1) Sepsis Pt is on Levo and Cefipime, per pulmoanry, Will cotninue to monitor, lactic acid improving, on Bicarb drip yesterday. Waiting on Blood Cultures. pt on granix 300mg mcg sc daily per Dr. Reza till Absolute neutrophil count >1500, poor prognosis. (2) KIM (acute kidney injury) Continue with IV fluids, Changed to Albumin last Night per pulmonary, will continue, pt has third spacing from Liver metastasis. Nephrology consulted, avoid nephrotoxic meds. Renally dose Abx. (3) Elevated troponin Demand ischemia. (4) Hypokalemia Treatment per ICu protocol. (5) Colon cancer Pt on Chemotherapy from Dr. Reza, Will continue Chemo after this Admission per Dr. Reza. (6) Liver metastases continue antibiotics, PT/OT, incentive spirometry, DVT proph w/lovenox - Discharge Day Encounter end time: 12:00 Review of Systems - Review of Systems Other: Patient has poor mental status unable to obtain Ros. - Medications/Allergies Allergies/Adverse Reactions: Allergies Allergy/AdvReac Type Severity Reaction Status Date / Time bevacizumab [From Avastin] Allergy Verified 06/26/17 18:38 vancomycin Allergy Verified 06/26/17 18:38 Medications: Current Medications Hydrocodone Bitart/Acetaminophen ([place] 5/325) 1 tab PO Q4H PRN PRN Reason: Moderate Pain (4-6) Last Admin: 06/27/17 21:29 Dose: 1 tab Albumin Human (Albumin 25%) 25 gm IVPB 0300,1100,1900 SCOOBY Stop: 06/29/17 11:01 Last Admin: 06/28/17 10:52 Dose: 25 gm Calcium Carbonate (Tums) 500 mg PO Q6H PRN PRN Reason: . Last Admin: 06/26/17 20:23 Dose: 500 mg Famotidine (Pepcid) 20 mg SLOW IVP DAILY [facility] Gabapentin (Neurontin) 100 mg PO BID [facility] Last Admin: 06/28/17 09:11 Dose: Not Given Hydrocortisone Sodium Succinate (Solu-Cortef) 100 mg IVP Q6HR [facility] Last Admin: 06/28/17 11:29 Dose: 100 mg Norepinephrine Bitartrate 8 mg (/ Sodium Chloride) 250 mls @ 0 mls/hr IVPB PRN PRN; Protocol; Titrate PRN Reason: To maintain MAP > 65 Last Admin: 06/28/17 06:48 Dose: 250 mls Cefepime HCl 2 gm/ Syringe 2.5 (ml/ Sterile Water) 12.5 mls @ 150 mls/hr SLOW IVP Q12HR [facility] Last Admin: 06/28/17 09:05 Dose: 12.5 mls Levofloxacin 750 mg/ Device 150 mls @ 100 mls/hr IVPB Q2D@1600 SCOOBY Sodium Bicarbonate 150 meq/ (Dextrose/Water) 1,000 mls @ 100 mls/hr IV .Q10H [facility] Last Admin: 06/28/17 10:04 Dose: 1,000 mls Lactulose (Lactulose) 20 gm PO DAILYPRN PRN PRN Reason: Constipation Metoprolol Succinate (Toprol Xl) 50 mg PO DAILY [facility] Last Admin: 06/28/17 09:11 Dose: Not Given Ondansetron HCl (Zofran Odt) 4 mg PO Q6H PRN PRN Reason: Nausea/Vomiting Ondansetron HCl (Zofran) 4 mg IVP Q6H PRN PRN Reason: Nausea/Vomiting Last Admin: 06/26/17 17:14 Dose: 4 mg Sodium Bicarbonate (Bicarbonate, Sodium) 650 mg PO TID [facility] Last Admin: 06/28/17 14:08 Dose: Not Given Tbo-Filgrastim (Granix) 300 mcg SC DAILY [facility] Last Admin: 06/28/17 09:05 Dose: 300 mcg
[2017-06-28] MEDS ORDERED: Lorazepam 2 MG/ML VIAL SLOW IVP PRN (18:59)
--- NOTE | 2017-06-28 18:59 | PRG ---
DATE OF SERVICE: 06/28/2017 SUBJECTIVE: Ms. Lauren's status has changed overnight. She has become more despondent. Family states she received pain medication last evening. She has been answering questions appropriately. PHYSICAL EXAMINATION: VITAL SIGNS: Blood pressure 105/56, pulse 94, respirations 20. LUNGS: Clear to auscultation. HEART: Regular rate and rhythm. ABDOMEN: Soft, nontender, nondistended. EXTREMITIES: No edema. IMPRESSION: 1. EKG changes. 2. Elevated troponin. 3. Metastatic colon cancer with liver metastasis. 4. Encephalopathy. RECOMMENDATIONS: There are no further recommendations. Ms. Lauren is likely at the end of life. I di d discuss the case with Dr. Jone Oliveira and Dr. Costa who agree. No further recommendations.
[2017-06-28] MEDS ORDERED: Morphine 2 MG/ML SYRINGE SLOW IVP PRN (19:00)
--- NOTE | 2017-06-28 19:30 | PRG ---
DATE OF SERVICE: 06/28/2017 SUBJECTIVE: Ms. Lauren is now obtunded, has a fixed gaze. OBJECTIVE: VITAL SIGNS: Temperature is 97.6, heart rate is 93, blood pressure 117/52. ABDOMEN: Notable for palpable hepatomegaly. NEUROLOGIC: Full neurologic exam is not performed. LABORATORY STUDIES: White count 0.3, hemoglobin 6.9, platelet count 18,000. INR 4.9. Sodium 142, p otassium 4.4, BUN 101, creatinine 2.31. CEA is now 310, up from 77 on 06/19/2017, and 26 on 05/15/20 17. AST is 1365, ALT is 293, bilirubin is 9.7. ASSESSMENT: 1. 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 This is exhibited by severe coagulopathy and ence phalopathy which is likely related to hepatic encephalopathy. 2. Encephalopathy. This could be related to hepatic encephalopathy. This could be related intracra nial bleeding with low platelet count and elevated INR. 3. Metastatic colon cancer with overwhelming metastases in the liver and lung. RECOMMENDATIONS: At this time, I do not think there is anything that can be done. She is not a live r transplant candidate. Her tumor has advanced despite the recent course of chemotherapy. There are no signs of cholangitis. It is possible that she has had tumor ingrowth to the portal vein or hepat ic vein to cause worsening hepatic function, but she already has coagulopathy and there is no role fo r anticoagulation. At this time, I would recommend palliative care. I think that adding lactulose o r Xifaxan is not really going to reverse the process of hand. The family has decided they did not wa nt intubation or CPR and I have conveyed this with the nurses. At this time, hospice or palliative c are consult would be reasonable. Initially, the patient's family told me they wanted to bring her ho me but then came back out of the room and told me that probably rather have her stay and I think that would be more appropriate as I think transporting her home she may not make that trip.
[2017-06-29 07:14] VITALS: BP 117/92; TEMP 97
[2017-06-29 08:38] VITALS: BMI 31.6
[2017-06-29] MEDS ORDERED: Famotidine/PF 20 mg/2ml Vial SLOW IVP SCH (09:00)
[2017-06-29] MEDS ORDERED: Morphine 4 MG/ML VIAL IV PRN (10:09)
[2017-06-29] MEDS ORDERED: Lorazepam 2 MG/ML VIAL SLOW IVP PRN (10:15)
--- NOTE | 2017-07-10 13:48 | DIS ---
DATE OF ADMISSION: 06/26/2017 DATE OF : Pronounced on 06/29/2017 TIME OF : 1:40. ADMITTING DIAGNOSIS: Acute anemia. DISCHARGE DIAGNOSES: Neutropenic sepsis with septic shock. SECONDARY DIAGNOSES: 1. Acute metabolic encephalopathy. 2. Non-ST elevation myocardial infarction. 3. Coagulopathy. 4. Metastatic colon cancer. CONSULTANTS INVOLVED IN THE CARE: 1. Dr. Oliveira. 2. Dr. Huey Saini from Nephrology. 3. Dr. Reza. 4. Dr. Sriram Hobbs. HISTORY OF PRESENT ILLNESS AND HOSPITAL COURSE: In brief, this is a 67-year-old lady, who was admitt ed from Oncology Clinic directly to the floor for anemia for blood transfusion. It was noted that th e patient had a very low neutrophils and was started on Neupogen by Dr. Reza. During her admissio n, she got progressively weaker with low blood pressures and worsening mental status. The patient wa s immediately transferred to the ICU and she was noted to have elevated troponins with ST segment mona vation and the Cardiology was consulted for that and as the patient was severely sick and has worseni ng liver functions secondary to her liver metastasis from colon. Patient had a very poor prognosis. She was started on pressors for blood pressure management and was given IV fluids. She was looking very sick after discussion with the family. Pressors were discontinued and palliative care was initi ated. Patient peacefully. I spent 30 minutes with this patient on the day of .
== END 2017-06-29 14:04 | disposition expired | DRG 871 ==
LOC: ONC 15:33 → CCU 21:50 → T4-A 06-28 20:39
PROVIDERS: ADMIT Family Medicine; ATTEND Family Medicine
PROC: 30233N1 Transfusion of Nonautologous Red Blood Cells into Peripheral Vein, Percutaneous Approach (ICD-10-PCS; principal; 2017-06-28)
DX: A41.9 Sepsis, unspecified organism (principal); K83.1 Obstruction of bile duct; I21.4 Non-ST elevation (NSTEMI) myocardial infarction; R65.21 Severe sepsis with septic shock; D61.810 Antineoplastic chemotherapy induced pancytopenia; N17.9 Acute kidney failure, unspecified; D70.1 Agranulocytosis secondary to cancer chemotherapy; G93.41 Metabolic encephalopathy; C78.00 Secondary malignant neoplasm of unspecified lung; E87.2 Acidosis; C78.7 Secondary malignant neoplasm of liver and intrahepatic bile duct; I24.8 Other forms of acute ischemic heart disease; K72.90 Hepatic failure, unspecified without coma; Z51.5 Encounter for palliative care; D64.81 Anemia due to antineoplastic chemotherapy; I10 Essential (primary) hypertension; Z88.1 Allergy status to other antibiotic agents; T45.1X5A Adverse effect of antineoplastic and immunosuppressive drugs, initial encounter; Z90.49 Acquired absence of other specified parts of digestive tract; Z95.828 Presence of other vascular implants and grafts; Z92.21 Personal history of antineoplastic chemotherapy; E80.6 Other disorders of bilirubin metabolism; Z87.891 Personal history of nicotine dependence; Z66 Do not resuscitate; E87.6 Hypokalemia
CPT/HCPCS: 36415; 36416; 36430; 74177; 76700; 80053; 81001; 82140; 82248; 82378; 82553; 82805; 83605; 83615; 83690; 83735; 84100; 84484; 84550; 85007; 85025; 85027; 85379; 85610; 86850; 86900; 86901; 87040; 87086; 93005; 93010; 96365; A4216; J0692; J1442; J1720; J1956; J2060; J2270; J2405; J2543; J7050; J7070; P9016; P9045; P9047